=== PATIENT | male | born 1945 | race Caucasian/White ===

== ENCOUNTER 2016-08-13 04:36 | Inpatient (IN) | payer MEDICARE, OTHER ==
--- NOTE | ~2016-08-13 | CR71 ---
[facility] A Service of [facility] RADIOLOGY TEXT RESULTS PATIENT: WENDY GARCIA LOCATION: [address] : [birth year] UNIT #: [id number] AGE: [address]: Alena Mathias MD SEX: M ORDER DR: [id number] [facility] [address] [place], [place] [address] [id number] I MR#: [id number] Acc #: [id number] NAME: WENDY GARCIA : 1945 SEX: M STUDY DATE/TIME: 08/14/2016 11:58 UNIT: [facility] ROOM: [facility] STUDY DESCRIPTION: CR Chest Single View Attending Physician: Alena Mathias M.D. Ordering Physician: Taryn Allen M.D. Primary Care Physician: No Primary Care Physician MEDICAL IMAGING REPORT This report is preliminary unless electronic signature is present EXAM AP portable chest DATE 08/14/2016 11:58 HISTORY Status post thoracentesis and central line placement today. COMPARISON AP portable chest 08/13/2016. CT chest 08/13/2016. Ultrasound guided left thoracentesis 08/14/2016. Right IJ approach central line placement 08/14/2016 at 10:36. FINDINGS Left lateral chest wall pleural thickening consistent with loculated pleural effusion again noted. The overall width appears diminished, suggesting amount of pleural fluid has decreased within it status post thoracentesis performed earlier today. There is no visible pneumothorax. Small right pleural effusion may be slightly increased compared to 08/13/2016. Interstitial and alveolar disease changes are present in both lungs, greatest in the right sjg-ph-chofr lung zone, slightly increased in the right perihilar region since previous examination. There may be slightly improved aeration in the lung apices, however, compared to the previous study. Stable heart size. Right IJ central line tip extends to the cavoatrial junction. IMPRESSION 1. Interval decrease in the loculated left lateral pleural fluid compared to 08/13/2016. No post thoracentesis pneumothorax is seen. 2. Right IJ central line placement with tip near the cavoatrial junction. 3. Interstitial and alveolar disease changes predominantly in the dyz-mi-meelz lung zones, slightly increased in the right perihilar STS. [facility] A Service of [facility] RADIOLOGY TEXT RESULTS PATIENT: WENDY GARCIA LOCATION: CICCU2 CICCU2-08 : [birth year] UNIT #: [id number] AGE: [address]: Alena Mathias MD SEX: M ORDER DR: region since the previous study. Correlate clinically for worsening pneumonia. The extreme lung apices appear slightly better aerated than on the previous exam. Dictated by... Carrie Yung M.D. THIS IS AN ELECTRONICALLY VERIFIED REPORT Carrie Yung M.D. at 08/15/2016 7:08 AM Marilyn TD: 08/14/2016 15:45 JOB #: [id number] MEDICAL IMAGING REPORT Page 1 of 1 COPY
--- NOTE | ~2016-08-13 | HP ---
Unit #: [id number] #: [id number] Patient: WENDY GARCIA [id number] [address] [address] [id number] I MR#: [id number] NAME: WENDY GARCIA ROOM: [address] Age: 71 Sex: M Admission Date: 08/13/2016 : 1945 Attending Physician: Alena Mathias M.D. Primary Care Physician: No Primary Care Physician HISTORY AND PHYSICAL CHIEF COMPLAINT Shortness of breath. HISTORY OF PRESENT ILLNESS The patient is a pleasant, 71-year-old male who has a history of respiratory failure with diastolic heart failure, end stage renal disease, COPD, anemia and coronary artery disease who presented with some shortness of breath. He was seen in the emergency room and admitted. His lactic acid level was elevated and he is currently being treated for sepsis. Chest x-ray revealed diffuse infiltrates in the left base and loculated pleural effusion. He is currently on BiPAP at this time. He does have a cough. Denies any fever but he is having chest pain. REVIEW OF SYSTEMS Complete ten point review of systems has been done and pertinent positives noted. PAST MEDICAL HISTORY 1. Diastolic heart failure. 2. End stage kidney disease. 3. COPD. 4. Anemia. 5. Coronary artery disease. 6. Paroxysmal atrial fibrillation. 7. Gastroesophageal reflux disease. 8. Hyperlipidemia. MEDICATIONS Medications include: 1. Norvasc 10 mg p.o. daily. 2. Lipitor 80 mg p.o. daily. 3. Nitrostat 0.4 mg sublingual q.5 minutes p.r.n. 4. Renvela 1600 mg p.o. three times a day. 5. Metoprolol tartrate 100 mg p.o. twice a day. 6. Spiriva 18 mcg inhalational daily. 7. Ventolin two puffs inhalational q.i.d. 8. Aspirin 81 mg p.o. daily. 9. Ascorbic acid 500 mg p.o. daily. 10. Flexeril 10 mg p.o. daily. 11. Imdur ER 60 mg p.o. daily. 12. Meclizine 25 mg p.o. q.8 hourly p.r.n. 13. Omeprazole 40 mg p.o. daily. 14. Tylenol 60 mg p.o. q.6 hourly p.r.n. Unit #: [id number] #: [id number] Patient: WENDY GARCIA ALLERGIES SHANTEL inhibitors, hydrocodone, adenosine IV, ranitidine. SOCIAL HISTORY Quit smoking. Denies any alcohol use or illicit drug use. FAMILY HISTORY Negative, noncontributory to the presenting complaint. PHYSICAL EXAMINATION GENERAL APPEARANCE: He was comfortable, not in any distress. VITAL SIGNS: Blood pressure was 152/84, pulse 106, respiratory rate 30, temperature 96.4. HEENT: Pupils were equal, reactive to light and accommodation. NECK: Supple without thyromegaly. CHEST: Reduced breath sounds in the lung bases with expiratory wheezing. SKIN: Warm and dry with no rashes. Skin was sallow and cool. LYMPHATIC SYSTEM: No enlarged peripheral lymphadenopathy that I could appreciate. NEUROLOGICAL: Limited because patient is currently on bed and attached to the BiPAP machine but able to move all limbs spontaneously. Cranial nerves II-XII grossly intact. DIAGNOSTIC STUDIES IMAGING: He had a chest x-ray which showed loculated pleural effusion as well as infiltrates. CARDIOVASCULAR: He had an EKG which showed (1) with rapid ventricular response. LABORATORY: He had chemistries with glucose of 207, BUN and creatinine (2) and 7.5, sodium and potassium 136 and 3.2, chloride and bicarbonate 92 and 20 respectively and a BNP of 2209, TSH of 0.16. CBC with WBC of 14.9, hemoglobin and hematocrit 8.5 and 26.4, platelet count of 551. ASSESSMENT AND PLAN 1. Pneumonia with sepsis: Blood cultures have been obtained. He is on broad spectrum antibiotics. Pulmonary has been consulted, Dr. Alba. The patient has already seen Dr. Alba. He is on Zithromax and Rocephin at this time for pneumonia. 2. Sepsis: The patient has an elevated lactic acid from IV fluids at 60 mL/hour considering the fact that he has congestive heart failure. 3. Pleural effusions: He has been seen by pulmonary, Dr. Julia Alba. She will get a 2D echo and get a CT of the chest with no contrast and consider thoracentesis. 4. Code status: Full Code. Dictated by Jose Alfredo ChenO/df TD: 08/13/2016 12:21 Unit #: [id number] #: [id number] Patient: WENDY GARCIA JOB #: [id number] HISTORY AND PHYSICAL Page 1 of 1 X Cynthia Velez MD HISTORY AND PHYSICAL
--- NOTE | ~2016-08-13 | CO ---
Unit #: [id number] #: [id number] Patient: WENDY HAYDEN [id number] [address] [address] [id number] I MR#: [id number] NAME: WENDY HAYDEN ROOM: CICCU2 Age: 71 Sex: M Admission Date: 08/13/2016 : 1945 Attending Physician: Alena Mathias M.D. Primary Care Physician: Primary Care Physician No Requesting Physician: Luis Reyes M.D. CONSULTATION REPORT REASON FOR CONSULTATION Loculated left pleural effusion. HISTORY OF PRESENT ILLNESS Mr. Wendy Hayden is a 71-year-old male with complaint of worsening shortness of air over a six-day period of time at home despite hemodialysis on Sunday, Sunday, and Sunday. He presented to the emergency room on 08/13/2016 with shortness of air. His lactic acid was elevated and he was treated for sepsis and given extra fluid volume. His chest x-ray revealed a left pleural effusion and CT of the chest confirmed loculated left pleural effusion on 08/13/2016. Thoracentesis on 08/14/2016 removed 250 mL of bloody drainage; however, follow up chest x-ray revealed minimal decrease in the loculated portion of the effusion. The patient is on BiPAP and hemodialysis at the time of the interview. PAST MEDICAL HISTORY 1. Respiratory failure. 2. Diastolic heart failure. 3. End-stage renal disease on hemodialysis. 4. COPD. 5. Anemia. 6. Coronary artery disease with the last cardiac catheterization found in the [place] on 10/20/2013 which showed severe two-vessel disease with an ejection fraction of 59%. 7. He has atrial fibrillation with RVR on this admit and a history of chronic atrial fibrillation. 8. GERD. 9. Hyperlipidemia. HOME MEDICATIONS Reviewed and list will remain in the chart. ALLERGIES 1. SHANTEL inhibitors. 2. Hydrocodone. 3. Adenosine. 4. IV contrast dye. 5. Zantac. SOCIAL HISTORY/FAMILY HISTORY/REVIEW OF SYSTEMS Unobtainable due to patient being on BiPAP and breathless when off of BiPAP. Unit #: [id number] #: [id number] Patient: WENDY HAYDEN PHYSICAL EXAMINATION VITAL SIGNS: Temperature 97.6, heart rate 90, respiratory rate 14, blood pressure 132/65. GENERAL: Mr. Hayden is an obviously ill 71-year-old male, fair historian regarding his own medical history. Difficult to interview with BiPAP in place. NEUROLOGIC: He is intact and is hard of hearing. HEENT: Normocephalic. No facial asymmetry. Sclerae are anicteric. NECK: Supple. Trachea midline. No thyromegaly. No JVD. LUNGS: Decreased in the bases with crackles. He has no increase in AP diameter. HEART: S1, S2 without rub, without murmur, no edema. ABDOMEN: Round, soft, bowel sounds positive. Nontender. No pulsatile masses or hepatosplenomegaly. EXTREMITIES: Left arm hemodialysis access in place which is an arteriovenous fistula. He has bilateral lower extremities without edema. No clubbing, no cyanosis. He ambulates at home and is full weightbearing. DIAGNOSTIC STUDIES LABORATORY: BUN 77, creatinine 9.1, sodium 135, potassium 4.3, magnesium 2.5. WBC 23 up from 14 yesterday, platelets 435, hemoglobin 7.1, hematocrit 22.4. IMPRESSION 1. Loculated left pleural effusion, status post thoracentesis today with 250 mL removed this a.m. with little difference in the chest x-ray. We will await the cultures. Patient denies any previous pleural effusion. 2. End-stage renal disease on hemodialysis Sunday, Sunday, and Sunday. Patient denies any missed appointments. 3. Coronary artery disease. Last cardiac catheterization at the [facility] in 2013 which, by report in his chart, shows severe two-vessel disease. PLAN Possible placement of large caliber tube for as patient may be a poor surgical a candidate. Dr. Salinas has met with and examined patient and reviewed films. Dictated by... Lois Ty A.P.R.N. for Shad Salinas M.D. JENSEN/estevan TD: 08/14/2016 18:50 JOB #: [id number] Unit #: [id number] #: [id number] Patient: WENDY HAYDEN CONSULTATION REPORT Page 1 of 1 X Lois Ty APRN CONSULTATION REPORT
--- NOTE | ~2016-08-13 | EKG ---
PATIENT: WENDY GARCIA UNIT #: [id number] Ventricular Rate: 106 BPM Atrial Rate: 100 BPM QRS Duration: 106 ms Q-T Interval: 370 ms QTC Calculation(Bezet): 491 ms Calculated R [place]: 12 degrees Calculated T [place]: 60 degrees Diagnosis Line: Atrial fibrillation with rapid ventricular Diagnosis Line: response Diagnosis Line: Nonspecific ST and T wave abnormality Diagnosis Line: Abnormal ECG Diagnosis Line: When compared with ECG of 05-MAY-2016 05:59, Diagnosis Line: Atrial fibrillation has replaced Sinus rhythm Diagnosis Line: Non-specific change in ST segment in Inferior Diagnosis Line: leads Diagnosis Line: Nonspecific T wave abnormality now evident in Diagnosis Line: Inferior leads Diagnosis Line: Confirmed by JUANCHO RIVAS MD ([id number]) on Diagnosis Line: 08/14/2016 8:36:49 AM INTERPRETING MD: ROB CAPPS
--- NOTE | ~2016-08-13 | CR72 ---
[facility] A Service of [facility] RADIOLOGY TEXT RESULTS PATIENT: WENDY GARCIA LOCATION: [address] : [birth year] UNIT #: [id number] AGE: [address]: Luis Reyes MD SEX: M ORDER DR: [id number] [facility] [address] [place], [place] [address] [id number] I MR#: [id number] Acc #: [id number] NAME: WENDY GARCIA : 1945 SEX: M STUDY DATE/TIME: 08/19/2016 7:36 UNIT: [facility] ROOM: [facility] STUDY DESCRIPTION: CR Chest Single View Portable Attending Physician: Luis Reyes M.D. Ordering Physician: Lois Ty A.P.R.N. MEDICAL IMAGING REPORT This report is preliminary unless electronic signature is present EXAM Portable chest 08/19/2016 HISTORY 71-year-old male status post chest tube removal today. Shortness of air. COMPARISON STUDIES Chest 08/19/2016 at 0510 hours. FINDINGS Frontal chest demonstrates removal of the left-sided chest tube. There is a small persistent left basilar hydropneumothorax. Tiny left apical pneumothorax. Bilateral interstitial opacities and bibasilar infiltrates are unchanged. Right IJ central venous catheter is stable. Heart size and mediastinum are stable. IMPRESSION 1. Interval removal of left-sided chest tube. Persistent small left basilar hydropneumothorax. Tiny left apical pneumothorax. 2. No change in bilateral interstitial opacities and bibasilar atelectasis/infiltrate. Dictated by... Jasper Livingston M.D. THIS IS AN ELECTRONICALLY VERIFIED REPORT Jasper Livingston M.D. at 08/20/2016 6:20 AM KRYSTIAN/raquel TD: 08/19/2016 09:33 JOB #: [id number] [facility] A Service of [facility] RADIOLOGY TEXT RESULTS PATIENT: WENDY GARCIA LOCATION: [facility] CICCU2-08 : [birth year] UNIT #: [id number] AGE: [address]: Luis Reyes MD SEX: M ORDER DR: MEDICAL IMAGING REPORT Page 1 of 1 COPY
--- NOTE | ~2016-08-13 | OR ---
Unit #: [id number] #: [id number] Patient: WENDY GARCIA [id number] [address] [address] [id number] I MR#: [id number] NAME: WENDY GARCIA ROOM: [facility] Date of Procedure: 08/15/2016 Admission Date: 08/13/2016 Surgeon: Shad Salinas M.D. : 1945 Attending Physician: Luis Reyes M.D. OPERATIVE REPORT PREOPERATIVE DIAGNOSIS Left loculated pleural effusion. POSTOPERATIVE DIAGNOSIS Left loculated pleural effusion. PROCEDURE PERFORMED Insertion of a #20 left chest tube. ANESTHESIA Local 1% Xylocaine. ESTIMATED BLOOD LOSS About 5 mL. COMPLICATIONS None. DESCRIPTION OF PROCEDURE With the patient in his intensive care unit bed, he was placed such that the left chest was slightly elevated and his left arm was placed behind his head. The left chest was prepped with DuraPrep and draped in a sterile fashion. After adequate anesthesia had been obtained using local 1% Xylocaine, a small transverse skin incision was made in the anterior axillary line just slightly below the sixth intercostal space. A tonsil clamp was used to spread through the subcutaneous tissue and down through the sixth intercostal space into the pleural space. Following this, a #20 trocar left chest tube was inserted into this pleural space and then directed up along the chest wall. I was able to drain about 75 mL of fluid with insertion of the tube. The tube was connected to a Pleur-evac. A cut 4x4 was placed around the chest tube and it was secured in place with tape. Estimated blood loss in the procedure was about 5 mL. The patient tolerated the procedure well. Dictated by... Jose Alfredo London/erin TD: 08/16/2016 23:07 Unit #: [id number] #: [id number] Patient: WENDY GARCIA JOB #: [id number] OPERATIVE REPORT Page 1 of 1 X Shad Salinas MD X PROCEDURE OPERATIVE NOTE
--- NOTE | ~2016-08-13 | EKG ---
PATIENT: WENDY GARCIA UNIT #: [id number] Ventricular Rate: 130 BPM Atrial Rate: 130 BPM P-R Interval: 128 ms QRS Duration: 104 ms Q-T Interval: 348 ms QTC Calculation(Bezet): 512 ms Calculated T [place]: 101 degrees Diagnosis Line: Sinus tachycardia with Premature supraventricular Diagnosis Line: complexes Diagnosis Line: Anterior infarct , age undetermined Diagnosis Line: Marked ST abnormality, possible lateral Diagnosis Line: subendocardial injury Diagnosis Line: Abnormal ECG Diagnosis Line: When compared with ECG of 13-AUG-2016 04:49, Diagnosis Line: (unconfirmed) Diagnosis Line: Sinus rhythm has replaced Atrial fibrillation Diagnosis Line: Nonspecific T wave abnormality no longer evident Diagnosis Line: in Inferior leads Diagnosis Line: T wave inversion now evident in Lateral leads Diagnosis Line: Confirmed by NOAH MENDOZA MD ([id number]) on 08/14/2016 Diagnosis Line: 5:50:26 AM INTERPRETING MD: KELLY CAPPS
--- NOTE | ~2016-08-13 | CR72 ---
[facility] A Service of [facility] RADIOLOGY TEXT RESULTS PATIENT: WENDY GARCIA LOCATION: [facility] 555 : [birth year] UNIT #: [id number] AGE: [address]: Luis Reyes MD SEX: M ORDER DR: [id number] [facility] [address] [place], [place] [address] [id number] I MR#: [id number] Acc #: [id number] NAME: WENDY GARCIA : 1945 SEX: M STUDY DATE/TIME: 08/21/2016 6:51 UNIT: B ROOM: [facility] STUDY DESCRIPTION: CR Chest Single View Portable Attending Physician: Luis Reyes M.D. Ordering Physician: Chepe Freire M.D. Primary Care Physician: Primary Care Physician No MEDICAL IMAGING REPORT This report is preliminary unless electronic signature is present EXAM Portable chest 08/21/2016 COMPARISON 08/20/2016. HISTORY Status post chest tube removal, left pleural effusion, shortness of breath for 8 days. FINDINGS An AP view is obtained. Heart size is enlarged. Continues to be left-sided pleural fluid or pleural thickening. Lungs continue to show evidence of passive congestion and interstitial edema. There is likely a small to moderate right-sided effusion which is new. Right-sided line terminates in the SVC. CONCLUSION Continued evidence of interstitial edema. Stable left-sided pleural thickening. New right-sided pleural effusion. Dictated by... Ant Luther M.D. THIS IS AN ELECTRONICALLY VERIFIED REPORT Ant Luther M.D. at 08/22/2016 5:06 PM HELEN/padmini TD: 08/21/2016 07:47 JOB #: [id number] [facility] A Service [facility] RADIOLOGY TEXT RESULTS PATIENT: WENDY GARCIA LOCATION: [facility] 555 : [birth year] UNIT #: [id number] AGE: [address]: Luis Reyes MD SEX: M ORDER DR: MEDICAL IMAGING REPORT Page 1 of 1 COPY
--- NOTE | ~2016-08-13 | DS ---
Unit #: [id number] #: [id number] Patient: WENDY GARCIA [id number] [address] [address] [id number] I MR#: [id number] NAME: WENDY GARCIA ROOM: 555 Age: 71 Sex: M Admission Date: 08/13/2016 : 1945 Discharge Date: 08/24/2016 Attending Physician: Luis Reyes M.D. Primary Care Physician: Primary Care Physician No DISCHARGE SUMMARY PROBABLE DATE OF DISCHARGE 08/23/2016 pending home O2 set-up. HISTORY OF PRESENT ILLNESS/HOSPITAL COURSE The patient is a very pleasant 71-year-old male with underlying prior history of respiratory failure, diastolic dysfunction, end-stage renal disease on hemodialysis followed by [facility] team, COPD, anemia, and coronary artery disease, who presented secondary to shortness of breath. His initial lactic acid level was elevated. Chest x-ray showed diffuse infiltrates and he was admitted secondary to sepsis present on admission as well as pneumonia. Initially, he was placed on BiPAP and subsequently was placed in the ICU. Consultation was placed to Dr. Brannon and associates for evaluation. Through his hospital course, the patient ultimately underwent a thoracentesis with approximately 250 mL removed on the left side. Fluid studies were ascertained as well. Pulmonary services continued to follow the patient through his hospital course secondary to left-sided pleural effusion as well as concern for possible loculation versus empyema. Consultation was also placed to Dr. Salinas thoracic surgery services. The patient underwent left chest tube placement on 08/15/2016. Dr. Salinas continued to follow the patient through the hospital course as well. Eventually, his chest tube was removed. His antibiotics were de-escalated from IV into p.o. His IV Solu-Medrol was de-escalated as well. Cardiology services were also consulted secondary to his prior history of pzkehced-pa-hgkfos tricuspid regurgitation, as well as moderate pulmonary hypertension and prior history of diastolic dysfunction. Decision was made for no anticoagulation for atrial fibrillation secondary to prior history of anemia requiring blood transfusions off and on in the past. At the time of discharge, the patient will be transitioned to p.o. amiodarone with taper as to be determined by Cardiology. At this point in time, patient is medically stable for discharge. However, he has required O2 via nasal cannula as his O2 saturations have dipped into the low 80s even at rest. We are pending on insurance approval for the same. In regard to his history of end-stage renal disease, [facility] were consulted. The patient did undergo hemodialysis through Unit #: [id number] #: [id number] Patient: WENDY GARCIA his hospital course. At time of discharge, patient will follow up with Dr. Brannon's nurse practitioner in two weeks, as well as with Dr. Brannon in six to eight weeks. He will also follow up with his primary care physician in 7-10 days. At time of discharge, he will be given a prescription for Augmentin 875 mg p.o. b.i.d. times 7 days. PT and OT services did make a recommendation for consideration for rehab placement; however, he states that he wishes to go home and that he ultimately has care at home. FINAL DISCHARGE DIAGNOSES 1. Rpjtb-ur-sdbqpdl respiratory failure. 2. End-stage chronic obstructive pulmonary disease, now O2 dependent. 3. Loculated left-sided pleural effusion/empyema, status post thoracentesis as well as chest tube placement. 4. Atrial fibrillation not on chronic anticoagulation secondary to anemia with blood transfusions in the past. 5. Anemia of chronic disease. 6. End-stage renal disease. 7. Sepsis present on admission. 8. Pleural effusion/empyema. 9. Tobacco abuse. 10. Failure to thrive. 11. Immobility syndrome. 12. Hyperlipidemia. 13. Hypertension. 14. Gastroesophageal reflux disease. DISCHARGE MEDICATIONS 1. Ascorbic acid 500 mg p.o. daily. 2. Sublingual nitroglycerin as directed. 3. Imdur 60 mg p.o. daily. 4. Flexeril 10 mg p.o. daily p.r.n. 5. Omeprazole 40 mg p.o. daily. 6. Renvela 1600 mg p.o. t.i.d. 7. Augmentin 875 mg p.o. b.i.d. times 7 days. 8. Zemplar, as directed, with each dialysis Sunday, Sunday, and Sunday. 9. Tramadol 50 mg p.o. q.8 h. p.r.n. pain. 10. Aspirin 81 mg daily. 11. Lipitor 80 mg p.o. h.s. 12. Procrit injection Sunday, Sunday, and Sunday. 13. Lopressor 25 mg p.o. q.6 h. 14. Norvasc 10 mg p.o. daily. 15. Meclizine 25 mg p.o. q.8 h. p.r.n. 16. Spiriva one inhalation daily. 17. Tylenol 650 mg p.o. q.6 h. p.r.n. 18. DuoNeb aerosol solution q.6 h. scheduled with home nebulizer. 19. Amiodarone 200 mg p.o. b.i.d. with taper appropriate and directions by Cardiology. DISCHARGE CONDITION Stable. DISCHARGE DISPOSITION Home. Unit #: [id number] #: [id number] Patient: WENDY GARCIA FOLLOWUP PCP 7-10 days. Dictated by... Jose Alfredo Chapman/estevan TD: 08/24/2016 19:14 JOB #: [id number] DISCHARGE SUMMARY Page 1 of 1 X Luis Reyes MD X DISCHARGE SUMMARY
--- NOTE | ~2016-08-13 | EKG ---
PATIENT: WENDY GARCIA UNIT #: [id number] Ventricular Rate: 86 BPM Atrial Rate: 86 BPM QRS Duration: 102 ms Q-T Interval: 428 ms QTC Calculation(Bezet): 512 ms Calculated R [place]: 29 degrees Calculated T [place]: 63 degrees Diagnosis Line: Sinus rhythm with PAC's Diagnosis Line: Prolonged QT Diagnosis Line: Abnormal ECG Diagnosis Line: When compared with ECG of 13-AUG-2016 12:00, Diagnosis Line: Vent. rate has decreased BY 44 BPM Diagnosis Line: ST no longer depressed in Lateral leads Diagnosis Line: T wave inversion no longer evident in Lateral Diagnosis Line: leads Diagnosis Line: Confirmed by MOJGAN CLAROS MD ([id number]) on Diagnosis Line: 08/15/2016 9:46:29 PM INTERPRETING MD: ARTHUR
--- NOTE | ~2016-08-13 | CO ---
Unit #: [id number] #: [id number] Patient: WENDY HAYDEN [id number] [address] [place], [place] [address] [id number] I MR#: [id number] NAME: WENDY HAYDEN ROOM: CICCU2 Age: 71 Sex: M Admission Date: 08/13/2016 : 1945 Attending Physician: Luis Reyes M.D. Consultation Date: 08/14/2016 CONSULTATION REPORT REASON FOR CONSULTATION Management of end-stage renal disease. HISTORY OF PRESENT ILLNESS Mr. Hayden is a 71-year-old white male with a history of respiratory failure in the past along with heart failure and end-stage renal disease as well as COPD and coronary artery disease. The patient reported he was in his usual state of health until approximately 3 weeks ago when he began to experience a significant coughing episode with some mild shortness of breath. This gradually resolved over few days and he felt back to his baseline. This past Sunday, he began to experience some mild shortness of breath on an intermittent basis, which resolved the same day. On Sunday, he presented to the dialysis unit with some shortness of breath and over the course of the treatment, his respiratory issues resolved. He reported he did well on , but then on Sunday, he was also short of breath at dialysis, but again improved over the course of the treatment. He reported an episode again on Sunday, which resolved itself, but then reported on Sunday evening, his breathing became so severe that he sought attention at the emergency room. Over this period of time, he reports that his cough has been fairly minimal. He denies sputum production. He denies fevers or chills. He reports that he does not believe that he has gained excessive weight in between his dialysis treatments. REVIEW OF SYSTEMS A 10-point review of systems was done, and pertinent positives were noted as above. Specifically, he denies hemoptysis; GI issues including nausea, vomiting, diarrhea; skin lesions or boils; etc. He does complain of ongoing back pain the spinal issue. PAST MEDICAL HISTORY Significant for end-stagde renal disease, COPD, anemia, coronary artery disease, congestive heart failure, paroxysmal atrial fibrillation, gastroesophageal reflux disease, and hyperlipidemia. SOCIAL HISTORY The patient is a former smoker. He does not drink. He is and lives with his . FAMILY HISTORY Noncontributory. ALLERGIES SHANTEL inhibitors, hydrocodone, and Zantac. Unit #: [id number] #: [id number] Patient: WENDY HAYDEN PHYSICAL EXAMINATION VITAL SIGNS: At the time of evaluation, he was afebrile with a temperature of 97.4. His blood pressure was 141/66 with a heart rate of 85 and a respiratory rate of 17. He was on a pressure support mask with O2 saturations of 100%. GENERAL: He looked well, in no acute distress. HEENT: Head was normocephalic. Pupils were equal and reactive. Sclerae and conjunctivae were clear. NECK: Supple without adenopathy. There was no jugular venous distention. LUNGS: His chest showed diminished breath sounds on the left anterolaterally. There were no overt rales or rhonchi. The right side was clear. HEART: Regular rate with a prominent 3/6 systolic ejection murmur over the precordium. ABDOMEN: Soft and nontender. No masses or organomegaly were noted. GENITAL/RECTAL: Deferred. EXTREMITIES: Showed no lower extremity, thigh, buttocks, or flank edema. SKIN: Unremarkable with no evidence of rashes or boils or other lesions. NEUROLOGIC: Grossly unremarkable. DIAGNOSTIC STUDIES LABORATORY RESULTS: Notable for a blood gas showing a pH of 7.407 with a pCO2 of 39.8 and a pO2 of 68.2. Chemistries showed a creatinine of 8.7 with a BUN of 70 with a potassium of 3.5 and a bicarbonate of 21. Other values were essentially unremarkable except for a very mildly elevated alkaline phosphatase. Hemoglobin was 7.1 with a white count of 23,000 and platelet count of 435. IMPRESSION 1. Pneumonia/pleural lesions. With an elevated white count and shortness of breath, we agreed that he is presumed to have pneumonia and broad spectrum antibiotics have already been started and he is being followed by Pulmonary. 2. Possible sepsis. The patient was noted to have an elevated lactic acid and has been given some fluid resuscitation. 3. End-stage renal disease. The patient does not appear to be volume overloaded based upon his peripheral exam. Did have a mechanism to mirna this intravascular filling at this point in time, but given his hypoxia, we will want to cautiously challenge him as his hemodynamic status permits. Dictated by... Jose Alfredo Gomez/erin TD: 08/15/2016 09:25 JOB #: [id number] Unit #: [id number] #: [id number] Patient: WENDY HAYDEN CONSULTATION REPORT Page 1 of 1 X Edwin Saunders Jr, MD X CONSULTATION REPORT
--- NOTE | ~2016-08-13 | CR72 ---
[facility] A Service of [facility] RADIOLOGY TEXT RESULTS PATIENT: WENDY GARCIA LOCATION: [place] [address] : [birth year] UNIT #: [id number] AGE: [address]: Luis Reyes MD SEX: M ORDER DR: [id number] [facility] [address] [place], [place] [address] [id number] I MR#: [id number] Acc #: [id number] NAME: WENDY GARCIA : 1945 SEX: M STUDY DATE/TIME: 08/18/2016 04:28 UNIT: [facility] ROOM: [facility] STUDY DESCRIPTION: CR Chest Single View Portable Attending Physician: Luis Reyes M.D. Ordering Physician: Lois Ty A.P.R.N. Primary Care Physician: Primary Care Physician No MEDICAL IMAGING REPORT This report is preliminary unless electronic signature is present EXAM Portable chest 08/18 at 04:28 INDICATIONS Shortness of air. Pleural effusion. Chest tube. FINDINGS AP portable chest compared with 08/17/2016. Left chest tube in place. Pleural fluid collection on the left is stable. There is increasing consolidation in the right base and there may be increase in right pleural fluid. Generalized interstitial opacity would suggest mild edema. There is no pneumothorax on either side of the chest. Dictated by... Ruben Raymundo Jr., M.D. THIS IS AN ELECTRONICALLY VERIFIED REPORT Ruben Raymundo Jr., M.D. at 08/21/2016 8:36 AM MARIAM/katerin TD: 08/18/2016 06:46 JOB #: [id number] MEDICAL IMAGING REPORT Page 1 of 1 COPY
--- NOTE | ~2016-08-13 | CR72 ---
[facility] A Service of [facility] RADIOLOGY TEXT RESULTS PATIENT: WENDY GARCIA LOCATION: [place] [address] : [birth year] UNIT #: [id number] AGE: [address]: Luis Reyes MD SEX: M ORDER DR: [id number] [place] [id number] [facility]. [place], [place] [address] [id number] I MR#: [id number] Acc #: [id number] NAME: WENDY GARCIA : 1945 SEX: M STUDY DATE/TIME: 08/19/2016 5:10 UNIT: [facility] ROOM: [facility] STUDY DESCRIPTION: CR Chest Single View Portable Attending Physician: Luis Reyes M.D. Ordering Physician: Lois Ty A.P.R.N. Primary Care Physician: No Primary Care Physician MEDICAL IMAGING REPORT This report is preliminary unless electronic signature is present EXAM Single view chest. INDICATION Shortness of air. Left pleural effusion. FINDINGS Single, portable, AP view of the chest compared to 08/18/2016. Right IJ central line and the left chest tube remain in place. There is question of a small hydropneumothorax in the left lung base. The overall size of the effusion/hydrothorax is not changed from the prior study. This can be followed. Interstitial edema and right pleural effusion are similar to the prior study. IMPRESSION Questionable development of a small left hydropneumothorax. The size of the hydropneumothorax is not changed from the patient's prior pleural effusion. This lucency in the area could also be due to a skin fold. This can simply be followed. Dictated by... Scout Amaro M.D. THIS IS AN ELECTRONICALLY VERIFIED REPORT Scout Amaro M.D. at 08/19/2016 11:14 PM RPDerick/marta TD: 08/19/2016 09:20 JOB #: [id number] MEDICAL IMAGING REPORT [facility] A Service of [facility] RADIOLOGY TEXT RESULTS PATIENT: WENDY GARCIA LOCATION: [facility]-08 : [birth year] UNIT #: [id number] AGE: [address]: Luis Reyes MD SEX: M ORDER DR: Page 1 of 1 COPY
--- NOTE | ~2016-08-13 | CT57 ---
[facility] A Service of [facility] RADIOLOGY TEXT RESULTS PATIENT: WENDY GARCIA LOCATION: [address] : [birth year] UNIT #: [id number] AGE: [address]: Alena Mathias MD SEX: M ORDER DR: [id number] [facility] [address] [place], [place] [address] [id number] I MR#: [id number] Acc #: [id number] NAME: WENDY GARCIA : 1945 SEX: M STUDY DATE/TIME: 08/13/2016 14:07 UNIT: [facility] ROOM: [facility] STUDY DESCRIPTION: CT Chest Wo Cont Attending Physician: Alena Mathias M.D. Ordering Physician: Julia Alba D.O. Primary Care Physician: Primary Care Physician No MEDICAL IMAGING REPORT This report is preliminary unless electronic signature is present EXAM CT of the chest without contrast INDICATION Shortness of breath beginning last night. TECHNIQUE CT of the chest was performed without contrast. Coronal and sagittal reformatted images were obtained. There are no comparison chest CTs available. This CT exam was performed with one or more of the following radiation dose reduction techniques: automatic exposure control, adjustment of mA and/or kV according to patient size, and iterative reconstruction. FINDINGS There is a large left pleural effusion with what appear to be some septations throughout the pleural fluid. There is a small right pleural effusion. There are emphysematous changes of the lungs and scarring in the lung apices. There is atelectasis involving both lower lobes. There are some ground-glass infiltrates within the right lower lobe, right middle lobe and the base of the right upper lobe which may be infectious or inflammatory or could be edema. There are also some increased interstitial opacities as well within the right middle lobe and right lower lobe. Cardiomegaly. Coronary artery calcifications. There are prominent mediastinal lymph nodes which are nonspecific and may be reactive given the findings in the lungs. Some of these have calcifications. Limited imaging of the upper abdomen demonstrates small atrophic kidneys. Bone windows are unremarkable. [facility] A Service of [facility] RADIOLOGY TEXT RESULTS PATIENT: WENDY GARCIA [facility] [birth year] UNIT #: [id number] AGE: [address]: Alena Mathias MD SEX: M ORDER DR: IMPRESSION 1. There is a large left pleural effusion which appears to contain multiple septations. There is associated passive atelectasis involving the left lower lobe and also left upper lobe. 2. A small right pleural effusion is present with atelectasis/consolidation in the right lower lobe. 3. There are multiple ground-glass opacities and interstitial thickening elsewhere within the right lower lobe, right middle lobe and base of the right upper lobe. These are nonspecific and may be infectious or inflammatory or could be edema. 4. Emphysema. 5. Prominent mediastinal lymph nodes are nonspecific and may be reactive. 6. Suggest followup chest CTs to document clearing of these above findings. Dictated by... Humberto Salcedo M.D. THIS IS AN ELECTRONICALLY VERIFIED REPORT Humberto Salcedo M.D. at 08/14/2016 2:22 PM LIZ/emily TD: 08/14/2016 04:56 JOB #: [id number] MEDICAL IMAGING REPORT Page 1 of 1 COPY
--- NOTE | ~2016-08-13 | A ---
[facility] DATE: 08/18/16 Patient: WENDY GARCIA Physician: ANNELISE Address: [address] [place] [address] Room/Bed: [address], Zip: [place] [address] Admit Date: 08/13/16 Date of : [birth year] Height: 5 9 Weight: 155 70.5 NUTRITIONAL ASSESSMENT: REASON: LOS IN ICU ASSESSMENT PT IS 71 Y.O. MALE ADMITTED FOR SOA, AFIB PMH: ESRD ON HD, COPD, CHF, CAD, AFIB, GERD, HTN, HLD, ETOH ABUSE Anthropometrics: 5'9", WT: 155# (70 KG), BMI: 22.9 Labs: GLU: 115, BUN: 59, CREAT: 7.4, CA+:8.3, PHOS: 4.8, NA+:134, GFR: 6.8 Meds: PROTONIX, LIPITOR, ASCORBIC ACID I/O & Bowel function: 1675/748, 1 BM NOTED Skin Integrity: DRY SKIN NOTED Estimated Nutrition Needs: INCREASED NEEDS 2' PMH (HD), ?WEIGHT LOSS NOTED Assessment: CHART REVIEWED AND EVENTS NOTED. PT SEEN FOR LENGTH OF STAY ASSESSMENT IN ICU (5 DAYS). PT RECEIVING HD CURRENTLY ON BIPAP REPORTING "PRETTY GOOD" PO INTAKE AND APPETITE, NO C/O N/V/D. PT REPORTS LOSING ~70# LAST 6-8 MONTHS? (31% WEIGHT LOSS). PER [employer], NO WEIGHT LOSS NOTED. (?WEIGHTS W/PT ON HD). THIS RD ENCOURAGED ADEQUATE KCAL AND PROTEIN INTAKE, PT AGREED TO TO NEPRO SHAKES BID, RD WILL ORDER. RD ALSO PROVIDED WRITTEN AND VERBAL RENAL/HH DIET EDUCATION. PT DEMONSTRATED UNDERSTANDING OF THE TOPIC. PT REPORTED NO DIET QUESTIONS AT THIS TIME. RD TO FOLLOW. SEE RECOMMENDATIONS BELOW. Dx: ALTERED NUTRIENT UTILIZATION R/T PMH AEB NEED FOR THERAPEUTIC DIET ORDER. Intervention: 1. RENAL +HH DIET 2. NEPRO SHAKES BID 3. DIET EDUCATION Monitoring, Evaluation and Goals: 1. ORAL INTAKE; CONSUME >50% OF MEALS AND SUPPLEMENTS W/NO C/O N/V/D 2. WEIGHTS; PREVENT WEIGHT LOSS; PROMOTE WEIGHT MAINTENANCE 3. LABS; WNL 4. GI; PROMOTE REGULAR GI FUNCTION MONITOR: -PO INTAKE/APPETITE [facility] DATE: 08/18/16 Patient: WENDY GARCIA Physician: ANNELISE Address: [address] [place] [address] Room/Bed: [address], Zip: [place] [address] Admit Date: 08/13/16 Date of : [birth year] Height: 5 9 Weight: 155 70.5 -WEIGHTS -SUPPLEMENT INTAKE -EDUCATION NEEDS Recommendations: 1. PLEASE ORDER VANILLA NEPRO SHAKES BID W/MEALS 2. CONTINUE CURRENT DIET ORDER ABOVE 2' PMH, CURRENT CONDITION 3. ENCOURAGE ADEQUATE PO INTAKE RD WILL F/U PER PROTOCOL PT IS MILDLY COMPROMISED Respectfully, DEANNE PRECIADO MS, RD, LD [facility] cc: client file
--- NOTE | ~2016-08-13 | CR72 ---
[facility] A Service of [facility] & [facility] RADIOLOGY TEXT RESULTS PATIENT: WENDY GARCIA LOCATION: [address] : [birth year] UNIT #: [id number] AGE: [address]: Luis Reyes MD SEX: M ORDER DR: [id number] [facility] [address]. [place], [place] [address] [id number] I MR#: [id number] Acc #: [id number] NAME: WENDY GARCIA : 1945 SEX: M STUDY DATE/TIME: 08/15/2016 05:19 UNIT: [facility] ROOM: [facility] STUDY DESCRIPTION: CR Chest Single View Portable Attending Physician: Alena Mathias M.D. Ordering Physician: Александр Brannon M.D. Primary Care Physician: Primary Care Physician No MEDICAL IMAGING REPORT This report is preliminary unless electronic signature is present EXAM Portable chest, 08/15 at 05:19 hours INDICATIONS Shortness of air. Left pleural effusion. Status post thoracentesis yesterday. FINDINGS AP portable chest is compared with 08/14/2016. Right IJ line in the SVC. Loculated left effusion is unchanged. Infiltrates in both mid and lower lungs are also grossly stable. There is a small volume of right side pleural fluid. No pneumothorax is seen. Dictated by... Ruben Raymundo Jr., M.D. THIS IS AN ELECTRONICALLY VERIFIED REPORT Ruben Raymundo Jr., M.D. at 08/16/2016 5:53 AM MARIAM/marycarmen TD: 08/15/2016 08:03 JOB #: [id number] MEDICAL IMAGING REPORT Page 1 of 1 COPY
--- NOTE | ~2016-08-13 | CR72 ---
[facility] A Service of [facility] & [facility] RADIOLOGY TEXT RESULTS PATIENT: WENDY GARCIA LOCATION: [place] [id number] : [birth year] UNIT #: [id number] AGE: [address]: Luis Reyes MD SEX: M ORDER DR: [id number] [facility] [address] [facility] [address]. [place], [place] [address] [id number] I MR#: [id number] Acc #: [id number] NAME: WENDY GARCIA : 1945 SEX: M STUDY DATE/TIME: 08/16/2016 4:44 UNIT: [facility] ROOM: [facility] STUDY DESCRIPTION: CR Chest Single View Portable Attending Physician: Luis Reyes M.D. Ordering Physician: Александр Brannon M.D. Primary Care Physician: Primary Care Physician No MEDICAL IMAGING REPORT This report is preliminary unless electronic signature is present EXAM Portable chest 08/16/2016 INDICATION Shortness of air. Follow up pleural effusion and left thoracentesis 08/14/2016. Follow up infiltrates. COMPARISON 08/15/2016. FINDINGS This portable view of the chest shows no change in diffuse bilateral infiltrates. There is a small probably loculated left pleural effusion in the lateral left chest with a chest tube within it. This is unchanged. The central venous catheter is stable. Heart size is normal. Dictated by... Santi Saleh M.D. THIS IS AN ELECTRONICALLY VERIFIED REPORT Santi Saleh M.D. at 08/16/2016 8:41 AM PHANI/padmini TD: 08/16/2016 07:24 JOB #: [id number] MEDICAL IMAGING REPORT Page 1 of 1 COPY
--- NOTE | ~2016-08-13 | XA75 ---
[facility] A Service of [facility] & [facility] RADIOLOGY TEXT RESULTS PATIENT: WENDY GARCIA LOCATION: [address] : [birth year] UNIT #: [id number] AGE: [address]: Luis Reyes MD SEX: M ORDER DR: [id number] [facility] [address] [facility]. [place], [place] [address] [id number] I MR#: [id number] Acc #: [id number] NAME: WENDY GARCIA : 1945 SEX: M STUDY DATE/TIME: 08/14/2016 10:36 UNIT: [facility] ROOM: [facility] STUDY DESCRIPTION: XA CVC Non-Tunnel Attending Physician: Alena Mathias M.D. Ordering Physician: Alena Mathias M.D. Primary Care Physician: No Primary Care Physician MEDICAL IMAGING REPORT This report is preliminary unless electronic signature is present EXAM Central line placement. HISTORY Need for IV access in a patient with shortness of breath. He was admitted August 13, 2016 after he had a chest CT which showed a large left pleural effusion. PROCEDURE The procedure was explained to the patient including risks, benefits, potential complications, and potential for alternative forms of treatment. Informed consent was obtained and prior to initiating the procedure a formal time-out procedure was performed. Using all elements of maximal sterile barrier technique including hand hygiene, caps, sterile gowns and gloves and masks, the right neck was prepped with 2% chlorhexidine for cutaneous antisepsis and covered with a large sterile sheet. Real-time sterile ultrasound guidance was used to localize the right internal jugular vein which was found to be patent and compressible. A hard copy ultrasound image was obtained. After local anesthesia with 1% Xylocaine, the vein was punctured. Using real-time sterile ultrasound guidance, a 0.018 wire was advanced into the superior vena cava. A micropuncture sheath was places. A J-wire was advanced through the micropuncture sheath and the track was dilated and subsequently a triple-lumen central venous line was advanced over the wire and positioned at the cavoatrial junction. Following placement of the catheter, it flushed and aspirated easily and was secured using two 2-0 Silk sutures. Total fluoroscopy time was 0.1 minutes. AK was 2 mGy. IMPRESSION Successful placement of a right internal jugular vein MediPort which terminates into the superior vena cava. This catheter is ready for STS. [facility] A Service of [facility] RADIOLOGY TEXT RESULTS PATIENT: WENDY GARCIA LOCATION: [address] : [birth year] UNIT #: [id number] AGE: [address]: Luis Reyes MD SEX: M ORDER DR: immediate use. Ultrasound and fluoroscopic were used during placement of the catheter and permanent images were saved. Dictated by... Taryn Allen M.D. THIS IS AN ELECTRONICALLY VERIFIED REPORT Taryn Allen M.D. at 08/15/2016 4:42 PM ARVIND/marta TD: 08/15/2016 09:24 JOB #: [id number] MEDICAL IMAGING REPORT Page 1 of 1 COPY
--- NOTE | ~2016-08-13 | CR72 ---
[facility] A Service of [facility] & [facility] RADIOLOGY TEXT RESULTS PATIENT: WENDY GARCIA LOCATION: [facility]- : [birth year] UNIT #: [id number] AGE: [address]: Luis Reyes MD SEX: M ORDER DR: [id number] [facility] [address] [facility]. [place], [place] [address] [id number] I MR#: [id number] Acc #: [id number] NAME: WENDY GARCIA : 1945 SEX: M STUDY DATE/TIME: 08/20/2016 5:14 UNIT: [facility] ROOM: [facility] STUDY DESCRIPTION: CR Chest Single View Portable Attending Physician: Luis Reyes M.D. Ordering Physician: Lois Ty A.P.R.N. Primary Care Physician: No Primary Care Physician MEDICAL IMAGING REPORT This report is preliminary unless electronic signature is present EXAM Single view chest. INDICATION Chest tube placement. TECHNIQUE Single, portable, AP view of the chest compared to 08/19/2016. FINDINGS Right IJ central line remains in place. Heart and mediastinal contours are unchanged. Left pleural effusion is again noted. The pleural effusion is fairly similar to the prior study. There is no pneumothorax. IMPRESSION No significant change in the left pleural effusion. Dictated by... Scout Amaro M.D. THIS IS AN ELECTRONICALLY VERIFIED REPORT cSout Amaro M.D. at 08/21/2016 12:04 AM ETHAN/marta TD: 08/20/2016 07:14 JOB #: [id number] MEDICAL IMAGING REPORT Page 1 of 1 COPY
--- NOTE | ~2016-08-13 | CR72 ---
[facility] A Service of [facility] & [facility] RADIOLOGY TEXT RESULTS PATIENT: WENDY GARCIA LOCATION: [address] : [birth year] UNIT #: [id number] AGE: [address]: Luis Reyes MD SEX: M ORDER DR: [id number] [facility] [address] [facility]. [place], [place] [address] [id number] I MR#: [id number] Acc #: [id number] NAME: WENDY GARCIA : 1945 SEX: M STUDY DATE/TIME: 08/17/2016 04:32 UNIT: [facility] ROOM: [facility] STUDY DESCRIPTION: CR Chest Single View Portable Attending Physician: Luis Reyes M.D. Ordering Physician: Александр Brannon M.D. Primary Care Physician: Primary Care Physician No MEDICAL IMAGING REPORT This report is preliminary unless electronic signature is present EXAM Portable chest 08/17/2016 04:32 INDICATION Respiratory failure. Alcohol withdrawal. FINDINGS AP portable chest compared with 08/16/2016. Right IJ line in good position. Left chest tube remains in place within a loculated effusion. This loculated fluid collection appears slightly smaller. There may be a tiny left apical pneumothorax. Infiltrates in the right hnw-dx-jybkd lung are minimally improved. There is some continued consolidation at the left base but aeration in the left mid lung is also slightly improved. Dictated by... Ruben Raymundo Jr., M.D. THIS IS AN ELECTRONICALLY VERIFIED REPORT Ruben Raymundo Jr., M.D. at 08/17/2016 10:14 PM MARIAM/padmini TD: 08/17/2016 07:06 JOB #: [id number] MEDICAL IMAGING REPORT Page 1 of 1 COPY
--- NOTE | ~2016-08-13 | CO ---
Unit #: [id number] #: [id number] Patient: WENDY GARCIA [id number] [facility] [address] [place], [place] [address] [id number] I MR#: [id number] NAME: WENDY GARCIA ROOM: CICCU2 Age: 71 Sex: M Admission Date: 08/13/2016 : 1945 Attending Physician: Luis Reyes M.D. Consultation Date: 08/14/2016 CONSULTATION REPORT DICTATED FOR Dr. Saima Tucker, [facility], Cardiology. REASON FOR CONSULTATION Chest pain and shortness of breath. HISTORY OF PRESENT ILLNESS The patient is a 71-year-old white male, who has a medical historyof diastolic heart failure with an EF of 60%, COPD, end-stage renal disease - on hemodialysis, paroxysmal atrial fib, where he is only on aspirin due to history of GI bleed in 1997, hypertension, hyperlipidemia, and history of alcohol abuse with history of liver disease. The patient presented to the [facility]'s ED on 08/13/2016 with complaints of left-sided chest pain while lying in bed, Sunday evening, where he was unable to catch his breath, and his called EMS. The patient states that the shortness of breath had been noticeable for about a week or two, where he would notice that when he went downstairs to get his 's clothing, he would get short of breath with minimal activity; however, it became increasingly worse, where he began to feel short of breath while lying in bed, where he does lay pretty flat on two pillows only for his back pain. The patient complained of a productive cough, but the sputum was clear. He also complained of nausea, but denies any vomiting or diarrhea. He denies any kind of edema, but states that he did get a little lightheaded when the EMS picked him up and brought him into the hospital. The patient gets dialysis Sunday, Sunday, and Sunday. His last dialysis session was this past Sunday, where he was compliant with his dialysis regimen. The patient normally [facility] and states that he probably was there about a year ago. Cardiac cath in 2013 from the [facility] showed severe 2-vessel coronary artery disease involving the RCA, and the femoral and iliac arteries are heavily calcified. Last echo here at [facility] was in 07/2014 that showed an EF of 60%, moderate concentric LVH, RV was mildly dilated, calcified mitral apparatus with moderate MR, mild , mild AR, and RVSP of 30 to 40. The patient had a CT of the chest that showed a left large pleural effusion with multiple septations, involving the right lower lobe small pleural effusion with multiple ground-glass opacities in the right lower lobe, right middle lobe, and right base. Cardiology was consulted to help in assisting evaluation of the chest pain and shortness of breath. Unit #: [id number] #: [id number] Patient: WENDY GARCIA PAST MEDICAL HISTORY 1. Diastolic heart failure with an EF of 60% in 2014. 2. COPD. 3. End-stage renal disease, on hemodialysis Sunday, Sunday, and Sunday. 4. Paroxysmal atrial fibrillation. 5. Hypertension. 6. Hyperlipidemia. 7. Echo in 07/2014 with EF 60%, mild to moderate concentric LVH, RV mildly dilated, calcified mitral apparatus, moderate to severe MR, mild and AR, RVSP of 30 to 40. 8. History of alcohol abuse with a history of liver disease. PAST SURGICAL HISTORY Includes fistula placement. HOME MEDICATIONS Include; 1. Norvasc 10 mg p.o. daily. 2. Atorvastatin 80 mg p.o. daily. 3. Nitrostat 0.4 mg sublingual every 5 minutes as needed for chest pain. 4. Renvela 1600 mg p.o. 3 times a day. 5. Metoprolol tartrate 100 mg p.o. twice a day. 6. Spiriva daily. 7. Ventolin 2 puffs four times a day as needed. 8. Aspirin 81 mg p.o. daily. 9. Vitamin C 500 mg p.o. daily. 10. Flexeril 10 mg p.o. daily as needed for muscle spasms. 11. Imdur ER 60 mg p.o. daily. 12. Meclizine 25 mg p.o. q.8h p.r.n. dizziness. 13. Omeprazole 40 mg p.o. daily. 14. Tylenol 650 mg p.o. every 6 hours. ALLERGIES Include SHANTEL inhibitors, hydrocodone, adenosine, IV dye, and Zantac. REVIEW OF SYSTEMS See HPI. PHYSICAL EXAMINATION GENERAL: This is a 71-year-old white male, who is alert and oriented x3, in no apparent distress. VITAL SIGNS: Blood pressure 164/77, temperature 97.6, pulse 90, respirations 16. HEAD AND NECK: No lymphadenopathy. No carotid bruits. HEART: S1 and S2. No S3 or S4. No clicks. No rubs. Positive systolic ejection murmur. LUNGS: Diminished. ABDOMEN: Soft. Bowel sounds positive. Nontender. Nondistended. EXTREMITIES: No swelling. NEUROLOGIC: No neuro deficits noted. LABORATORY STUDIES Include hemoglobin of 7.1, white count 23, hematocrit 22.4, platelets 435. Sodium 135, potassium 4.3, chloride 97, CO2 21, glucose 134, BUN 77, creatinine 9.1, cholesterol 83, triglycerides 90, LDL 30, HDL 35, mag 2.5. Troponin 0.05. TSH 0.16. Blood cultures, no growth after 24 hours. Lactic 0.8. Unit #: [id number] #: [id number] Patient: WENDY GARCIA DIAGNOSTIC IMAGING CT of the chest that showed a large left pleural effusion with multiple septations, passive atelectasis in the left lower lobe and the left upper lobe, small right pleural effusion with atelectasis versus consolidation in the right lower lobe, and multiple ground-glass opacities and interstitial thickening in the right lower lobe, right middle lobe, and the base of the right upper lobe, emphysema. IMPRESSION 1. Acute respiratory failure. 2. Status post left thoracentesis with 250 mL of thick bloody drainage removed. 3. Atrial fibrillation with rapid ventricular response. 4. End-stage renal disease. 5. Diastolic heart failure. 6. Chronic obstructive pulmonary disease. 7. Hypertension. 8. Hyperlipidemia. 9. History of alcohol abuse. PLAN We will increase amiodarone to 1 mg/minute for 6 hours and back down to 0.5 mg/minute as the patient is in atrial fibrillation at this time. No anticoagulation for now secondary to anemia as well as possibility of a chest tube needing to be placed. We will check an EKG in the morning. Further recommendations pending current workup as well as plan of care for pleural effusion. Dictated by... YVETTE Puri TD: 08/15/2016 13:36 JOB #: [id number] CONSULTATION REPORT Page 1 of 1 X X CONSULTATION REPORT
--- NOTE | ~2016-08-13 | XA203 ---
[facility] A Service of [facility] RADIOLOGY TEXT RESULTS PATIENT: WENDY GARCIA LOCATION: [address] : [birth year] UNIT #: [id number] AGE: [address]: Luis Reyes MD SEX: M ORDER DR: [id number] [facility] [place], [place] [address] [id number] I MR#: [id number] Acc #: [id number] NAME: WENDY GARCIA : 1945 SEX: M STUDY DATE/TIME: 08/14/2016 10:30 [facility] STUDY DESCRIPTION: XA Thoracentesis Attending Physician: Luis Reyes M.D. Ordering Physician: Александр Brannon M.D. Primary Care Physician: No Primary Care Physician MEDICAL IMAGING REPORT This report is preliminary unless electronic signature is present EXAM Ultrasound-guided thoracentesis INDICATION Loculated left pleural effusion. PROCEDURE The risks, benefits, and alternatives to the procedure were explained to the patient and a signed, informed consent was obtained. Patient was placed in the upright position. Preliminary ultrasound at the left hemithorax was performed which demonstrated a complex collection of multiple septations noted. Overlying skin was marked. Patient was prepped and draped in usual sterile fashion. Timeout was performed as per protocol. Skin and subcutaneous tissues were anesthetized with buffered lidocaine. A Yueh catheter was advanced into the fluid with aspiration of bloody material. Catheter is hooked to suction tubing and I was ultimately able to remove about 250 mL of the thick bloody material. The catheter was then removed and manual pressure was applied until hemostasis was obtained. The patient tolerated the procedure well and there were no immediate complications. IMPRESSION Thoracentesis of the left hemithorax reveals very complex material which did not drain particularly well from the Yueh catheter. Ultimately, this patient will probably need a larger caliber tube. Thoracic surgery consultation is suggested. Ultrasound was used during the procedure and permanent images were saved. Dictated by... Taryn Allen M.D. [facility] Service of [facility] & [facility] RADIOLOGY TEXT RESULTS PATIENT: WENDY GARCIA LOCATION: CICCU2 CICCU2-08 : [birth year] UNIT #: [id number] AGE: [address]: Luis Reyes MD SEX: M ORDER DR: THIS IS AN ELECTRONICALLY VERIFIED REPORT Taryn Allen M.D. at 08/15/2016 4:42 PM AFF/aa TD: 08/15/2016 09:41 JOB #: [id number] MEDICAL IMAGING REPORT Page 1 of 1 COPY
--- NOTE | ~2016-08-13 | CO ---
Unit #: [id number] #: [id number] Patient: WENDY GARCIA [id number] [place], [place] [address] [id number] I MR#: [id number] NAME: WENDY GARCIA ROOM: CIC2 Age: 71 Sex: M Admission Date: 08/13/2016 : 1945 Attending Physician: Alena Mathias M.D. Primary Care Physician: Primary Care Physician No Consultation Date: 08/13/2016 CONSULTATION REPORT REASON FOR CONSULTATION Shortness of breath, hypoxemia. HISTORY OF PRESENT ILLNESS This is a 71-year-old male with a known history of end-stage renal disease, on hemodialysis. He states that a few days ago, he started developing increasing shortness of breath. He did not feel like they had taken enough fluid off him on dialysis. He was having sharp left-sided chest pain worse with inspiration. He had no fever or chills. No cough, but he did have what he describes as angina and took a nitroglycerin for and the chest pain resolved, but he still was short of breath. He finally could not take it anymore and came to the emergency room. The patient states he has never had a pleural effusion that he knows of. He has never had a thoracentesis. He has not had any recent colds or infections per him. He did smoke, but he said this was way in the past, but prior admission he said he is a lifelong smoker and he does take inhalers that he states he was diagnosed with asthma at age 10. He denies any family history of lung cancer. PAST MEDICAL HISTORY End-stage renal disease, on hemodialysis; diastolic heart dysfunction; COPD; coronary artery disease; chronic anemia; moderate mitral regurg; questionable history of paroxysmal atrial fibrillation; hypertension; dyslipidemia; chronic low back pain. PAST SURGICAL HISTORY Dialysis shunt left upper extremity. ALLERGIES SHANTEL inhibitor, hydrocodone, adenosine, IV dye, and Xanax. SOCIAL HISTORY The patient lives with his daughter. He has a history of tobacco and alcohol abuse, but he states none now. He states he is up to date on flu and pneumonia. No TB history. FAMILY HISTORY Diabetes and coronary artery disease. REVIEW OF SYSTEMS Complete review of systems was performed, pertinent positives include chief complaint. PHYSICAL EXAMINATION Unit #: [id number] #: [id number] Patient: WENDY GARCIA VITAL SIGNS: Currently are stable. He is afebrile. GENERAL: The patient is alert and oriented x3, on BiPAP, and appears comfortable. HEART: Regular rate and rhythm without murmur appreciated. No thrills palpated. LUNGS: Absent breath sounds left base laterally, there is egophony. Right is diminished. No egophony. No tachypnea. ABDOMEN: Soft, nontender. EXTREMITIES: Without clubbing, cyanosis, or edema. SKIN: Warm, dry, and intact. DIAGNOSTIC STUDIES IMAGING STUDIES: Chest x-ray reviewed. LABORATORY RESULTS: Laboratory studies reviewed. IMPRESSION 1. Shortness of breath and left-sided pleuritic chest pain secondary to large left possibly partially loculated pleural effusion. 2. Congestive heart failure. 3. End-stage renal disease, on hemodialysis. 4. Anemia. 5. Anemia. 6. Leukocytosis. 7. Moderate mitral regurgitation. 8. Paroxysmal atrial fibrillation. 9. History of chronic obstructive pulmonary disease or asthma. 10. Coronary artery disease with recent increasing angina. RECOMMENDATIONS 1. Discussed with the patient risks, benefits, and alternatives of thoracentesis and the patient is agreeable; however, we will get a CT of the chest and also to evaluate whether he needs any other additional procedures. 2. Repeat 2D echo, EKG if not done, troponins was if not done. 3. Bronchodilators. 4. Discontinue the BiPAP and check on oxygen, ABGs. Dictated by... Vielka Vega/erin TD: 08/14/2016 01:52 JOB #: [id number] CONSULTATION REPORT Page 1 of 1 X Julia Alba DO X CONSULTATION REPORT
--- NOTE | ~2016-08-13 | CR72 ---
[facility] A Service of [facility] & [facility] RADIOLOGY TEXT RESULTS PATIENT: WENDY GARCIA LOCATION: [address] : [birth year] UNIT #: [id number] AGE: [address]: Luis Reyes MD SEX: M ORDER DR: [id number] [facility] [address] [facility]. [place], [place] [address] [id number] I MR#: [id number] Acc #: [id number] NAME: WENDY GARCIA : 1945 SEX: M STUDY DATE/TIME: 08/15/2016 23:46 UNIT: [facility] ROOM: [facility] STUDY DESCRIPTION: CR Chest Single View Portable Attending Physician: Luis Reyes M.D. Ordering Physician: Shad Salinas M.D. Primary Care Physician: Primary Care Physician No MEDICAL IMAGING REPORT This report is preliminary unless electronic signature is present EXAM Portable chest 08/15/2016 at 23:46 INDICATIONS Chest tube placement tonight. Shortness of air. FINDINGS AP portable chest compared with earlier this evening. Left chest tube has been placed within the loculated left effusion. It does appears somewhat smaller in the interval. No pneumothorax on either side of the chest. There are continued infiltrates in both rzn-ye-kymhr lungs. Small right pleural effusion is unchanged. IJ line tip in the SVC. Dictated by... Ruben Raymundo Jr., M.D. THIS IS AN ELECTRONICALLY VERIFIED REPORT Ruben Raymundo Jr., M.D. at 08/16/2016 5:55 AM MARIAM/emily TD: 08/16/2016 02:14 JOB #: [id number] MEDICAL IMAGING REPORT Page 1 of 1 COPY
--- NOTE | ~2016-08-13 | CR72 ---
[facility] A Service of [facility] & [facility] RADIOLOGY TEXT RESULTS PATIENT: WENDY GARCIA LOCATION: [address] : [birth year] UNIT #: [id number] AGE: [address]: Luis Reyes MD SEX: M ORDER DR: [id number] [facility] [address] [facility]. [place], [place] [address] [id number] I MR#: [id number] Acc #: [id number] NAME: WENDY GARCIA : 1945 SEX: M STUDY DATE/TIME: 08/15/2016 19:51 UNIT: [facility] ROOM: [facility] STUDY DESCRIPTION: CR Chest Single View Portable Attending Physician: Luis Reyes M.D. Ordering Physician: Ed Doctor [id number] [facility] Primary Care Physician: No Primary Care Physician MEDICAL IMAGING REPORT This report is preliminary unless electronic signature is present EXAM Chest x-ray single-view portable HISTORY Pleural effusion. Evaluate central line today. No injury. COMMENT 2 frontal views of the chest submitted from 19:51 on 08/15/2016 for review to include the whole chest. Comparison is from earlier today. FINDINGS There has been retraction of the central venous catheter since earlier and it now terminates mid SVC level. There is again what is probably a large pleural effusion on the left side loculated more laterally with associated left mnb-hp-mmkjn lung airspace disease. Heart size is probably enlarged and partly obscured. Airspace disease at the right base is not significantly changed. There is likely some right pleural fluid. IMPRESSION Right IJ central venous catheters been repositioned. It is pulled back so that it terminates about mid SVC level currently. Otherwise no change in the abnormal chest x-ray. No pneumothorax. Dictated by... Izabel Fajardo M.D. THIS IS AN ELECTRONICALLY VERIFIED REPORT Izabel Fajardo M.D. at 08/15/2016 9:33 PM BRODIE/jayashree TD: 08/15/2016 21:05 [facility] A Service of [facility] & [facility] RADIOLOGY TEXT RESULTS PATIENT: WENDY GARCIA [facility] [birth year] UNIT #: [id number] AGE: [address]: Luis Reyes MD SEX: M ORDER DR: JOB #: [id number] MEDICAL IMAGING REPORT Page 1 of 1 COPY
[~2016-08-13 04:36] MED LIST: ALBUTEROL17 GM INH; ASCORBIC ACID500 M2 PO; ASCORBIC ACID500 M4 PO; ASPIRIN EC81 M1 PO; ATORVASTATIN CA80 MG PO; AZITHROMYCIN250 MG PO; CEFTIN500 MG PO; CORDARONE200 M1 PO; FLEXERIL10 MG PO; HYDROXYZINE PAM25 M1 PO; IMDUR-ER60 M2 PO; ISOSORBIDE MONO20 M1 PO; LASIX20 MG PO; LIDOCAINE-PRILOC5 GM TOP; LOPRESSOR PO; MECLIZINE HCL25 M2 PO; METOPROLOL TAR100 MG PO; NEPHRO-VITE RX T1 M1 PO; NITROSTAT0.4 MG SL; NORVASC10 MG PO; OMEPRAZOLE20 M2 PO; OMEPRAZOLE40 M1 PO; PANTOPRAZOLE SO40 MG PO; RENVELA800 MG PO; SPIRIVA; SPIRIVA18 MCG INH; STRIVERDI RESPIM4 GM INH; TYL325 PO; TYLENOL/CODEINE1 TA1 PO
[2016-08-13 04:52] LABS: BASOPHIL# 0.1 X10e3 (0-0.3); BASOPHIL% 0.8 % (0-2.5); EOSINOPHIL# 0.2 X10e3 (0-0.7); EOSINOPHIL% 1.4 % (0.0-7.0); HEMATOCRIT 26.4 % (38.0-50.0); HEMOGLOBIN 8.5 gm/dL (13.0-16.0); LYMPHOCYTE# 2.4 X10e3 (1.0-3.5); LYMPHOCYTE% 15.9 % (17.0-45.0); MEAN CELL VOLUME 94.3 FL (83-96); MEAN CORPUSCULAR HEMOGLOBIN 30.2 PG (28-34); MEAN PLATELET VOLUME 7.5 FL (6.5-11.5); MONOCYTE# 1.6 X10e3 (0-1.0); MONOCYTE% 10.8 % (3.0-12.0); NEUTROPHIL# 10.6 X10e3 (1.5-7.1); NEUTROPHIL% 71.1 % (40-75); PLATELET COUNT 551 X10e3 (140-420); RED CELL DISTRIBUTION WIDTH 16.1 % (11.0-15.5); WHITE BLOOD COUNT 14.9 X10e3 (4.0-10.5)
[2016-08-13 04:54] LABS: DIFF IND NO
[2016-08-13 05:05] LABS: POC - CKMB 2.8 ng/mL (0.0-7.9); POC - TROPONIN <0.05 ng/mL (<=0.05)
[2016-08-13 05:16] LABS: ALBUMIN SERUM 3.6 g/dL (3.5-5.0); BILIRUBIN,TOTAL 0.3 mg/dL (0.2-2.0); BUN/CREATININE RATIO 7.2; CREATININE SERUM 7.5 mg/dL (0.6-1.4); GLOM FILT RATE Estimated 6.6 mL/min (>60); POTASSIUM 3.2 mmol/L (3.5-5.1); PROTEIN TOTAL SERUM 8.2 g/dL (6.0-8.3)
[2016-08-13 05:32] LABS: ARTERIAL BLOOD GAS CARBOXY HB 2.2 %sat (0.0-9.0); ARTERIAL BLOOD GAS MET HB 0.6 %sat (0.0-2.0); ARTERIAL BLOOD GAS PCO2 39.8 mmHg (35.0-45.0); ARTERIAL BLOOD GAS pH 7.407 (7.350-7.450)
[2016-08-13 05:33] LABS: ARTERIAL BLOOD GAS ALLEN TEST NORMAL; ARTERIAL BLOOD GAS ART SITE RIGHT RADIAL; ARTERIAL BLOOD GAS DELIVERY BIPAP 14/6; ARTERIAL BLOOD GAS PO2 68.2 mmHg (80.0-100); ARTERIAL DRAW? YES
[2016-08-13 14:25] LABS: INR 1.1; PARTIAL THROMBOPLASTIN TIME 30.1 SECONDS (23.5-31.3); PROTHROMBIN TIME (PATIENT) 11.8 SECONDS (9.6-11.5)
[2016-08-13 22:25] LABS: BUN/CREATININE RATIO 8.04; CALCIUM SERUM 8.8 mg/dL (8.4-10.2); CREATININE SERUM 8.7 mg/dL (0.6-1.4); GLOM FILT RATE Estimated 5.6 mL/min (>60); MAGNESIUM 2.3 mg/dL (1.6-3.0); POTASSIUM 3.5 mmol/L (3.5-5.1)
[2016-08-14 04:47] LABS: HEMATOCRIT 22.4 % (38.0-50.0); HEMOGLOBIN 7.1 gm/dL (13.0-16.0); MEAN CELL VOLUME 93.2 FL (83-96); MEAN CORPUSCULAR HEMOGLOBIN 29.5 PG (28-34); MEAN CORPUSCULAR HGB CONC 31.7 g/dL (30-36); MEAN PLATELET VOLUME 7.9 FL (6.5-11.5); RED BLOOD COUNT 2.4 X10e (3.90-5.60); RED CELL DISTRIBUTION WIDTH 15.9 % (11.0-15.5)
[2016-08-14 05:13] LABS: BUN/CREATININE RATIO 8.46; CALCIUM SERUM 9.2 mg/dL (8.4-10.2); CREATININE SERUM 9.1 mg/dL (0.6-1.4); GLOM FILT RATE Estimated 5.3 mL/min (>60); MAGNESIUM 2.5 mg/dL (1.6-3.0); POTASSIUM 4.3 mmol/L (3.5-5.1)
[2016-08-14 14:11] LABS: PROTEIN, BODY FLUID 4.2 gm/dL
[2016-08-14 15:25] LABS: BODY FLUID APPEARANCE BLOODY; BODY FLUID SOURCE PLEURAL
[2016-08-15 05:21] LABS: BASOPHIL% 0.3 % (0-2.5); EOSINOPHIL% 0.1 % (0.0-7.0); HEMATOCRIT 18.5 % (38.0-50.0); INR 1.2; LYMPHOCYTE# 1.1 X10e3 (1.0-3.5); LYMPHOCYTE% 6.6 % (17.0-45.0); MEAN CELL VOLUME 92.8 FL (83-96); MEAN CORPUSCULAR HEMOGLOBIN 30.1 PG (28-34); MEAN CORPUSCULAR HGB CONC 32.4 g/dL (30-36); MEAN PLATELET VOLUME 7.1 FL (6.5-11.5); MONOCYTE# 1.6 X10e3 (0-1.0); NEUTROPHIL# 13.4 X10e3 (1.5-7.1); PARTIAL THROMBOPLASTIN TIME 27.3 SECONDS (23.5-31.3); PLATELET COUNT 353 X10e3 (140-420); PROTHROMBIN TIME (PATIENT) 12.4 SECONDS (9.6-11.5); RED BLOOD COUNT 1.99 X10e (3.90-5.60); RED CELL DISTRIBUTION WIDTH 16.4 % (11.0-15.5); WHITE BLOOD COUNT 16.2 X10e3 (4.0-10.5)
[2016-08-15 05:25] LABS: DIFF IND NO
[2016-08-15 06:15] LABS: BUN/CREATININE RATIO 7.64; CALCIUM SERUM 8.5 mg/dL (8.4-10.2); CREATININE SERUM 5.1 mg/dL (0.6-1.4); GLOM FILT RATE Estimated 10.6 mL/min (>60); POTASSIUM 3.7 mmol/L (3.5-5.1)
[2016-08-15 06:20] LABS: FREE T3 2.7 pg/mL (2.5-3.9)
[2016-08-15 06:21] LABS: FREE THYROXIN (T4) 0.98 ng/dL (0.58-1.64)
[2016-08-15 11:01] LABS: HEMATOCRIT 23.2 % (38.0-50.0); HEMOGLOBIN 7.4 gm/dL (13.0-16.0); MEAN CELL VOLUME 91.9 FL (83-96); MEAN CORPUSCULAR HEMOGLOBIN 29.2 PG (28-34); MEAN CORPUSCULAR HGB CONC 31.8 g/dL (30-36); MEAN PLATELET VOLUME 7.3 FL (6.5-11.5); RED BLOOD COUNT 2.52 X10e (3.90-5.60); WHITE BLOOD COUNT 16.1 X10e3 (4.0-10.5)
[2016-08-16 06:08] LABS: BASOPHIL# 0.1 X10e3 (0-0.3); BASOPHIL% 0.4 % (0-2.5); EOSINOPHIL# 0.1 X10e3 (0-0.7); EOSINOPHIL% 0.4 % (0.0-7.0); HEMATOCRIT 21.6 % (38.0-50.0); HEMOGLOBIN 7.1 gm/dL (13.0-16.0); LYMPHOCYTE# 0.7 X10e3 (1.0-3.5); LYMPHOCYTE% 4.9 % (17.0-45.0); MEAN CELL VOLUME 91.2 FL (83-96); MEAN CORPUSCULAR HEMOGLOBIN 29.8 PG (28-34); MEAN CORPUSCULAR HGB CONC 32.7 g/dL (30-36); MEAN PLATELET VOLUME 7.3 FL (6.5-11.5); MONOCYTE# 1.7 X10e3 (0-1.0); MONOCYTE% 12.3 % (3.0-12.0); NEUTROPHIL# 11.6 X10e3 (1.5-7.1); PLATELET COUNT 325 X10e3 (140-420); RED BLOOD COUNT 2.37 X10e (3.90-5.60); RED CELL DISTRIBUTION WIDTH 16.8 % (11.0-15.5); WHITE BLOOD COUNT 14.1 X10e3 (4.0-10.5)
[2016-08-16 06:11] LABS: DIFF IND YES
[2016-08-16 07:05] LABS: PLATELET ESTIMATE NORMAL (NORMAL); RBC NORMAL YES
[2016-08-16 07:06] LABS: ANISOCYTOSIS SL; MICROCYTOSIS SL; OVALOCYTES PRESENT
[2016-08-16 07:07] LABS: POIKILOCYTOSIS SL
[2016-08-16 07:25] LABS: BUN/CREATININE RATIO 8.08; CALCIUM SERUM 8.3 mg/dL (8.4-10.2); CREATININE SERUM 7.3 mg/dL (0.6-1.4); GLOM FILT RATE Estimated 6.9 mL/min (>60); POTASSIUM 3.9 mmol/L (3.5-5.1)
[2016-08-16 09:51] LABS: BUN/CREATININE RATIO 7.97; CALCIUM SERUM 8.3 mg/dL (8.4-10.2); CREATININE SERUM 7.4 mg/dL (0.6-1.4); GLOM FILT RATE Estimated 6.8 mL/min (>60); MAGNESIUM 2.3 mg/dL (1.6-3.0); POTASSIUM 3.9 mmol/L (3.5-5.1)
[2016-08-17 06:56] LABS: BASOPHIL# 0.1 X10e3 (0-0.3); EOSINOPHIL# 0.4 X10e3 (0-0.7); EOSINOPHIL% 2.7 % (0.0-7.0); HEMATOCRIT 26.5 % (38.0-50.0); HEMOGLOBIN 8.7 gm/dL (13.0-16.0); LYMPHOCYTE% 7.3 % (17.0-45.0); MEAN CELL VOLUME 91.3 FL (83-96); MEAN CORPUSCULAR HEMOGLOBIN 29.9 PG (28-34); MEAN CORPUSCULAR HGB CONC 32.7 g/dL (30-36); MONOCYTE# 1.6 X10e3 (0-1.0); MONOCYTE% 11.8 % (3.0-12.0); NEUTROPHIL# 10.3 X10e3 (1.5-7.1); NEUTROPHIL% 77.2 % (40-75); PLATELET COUNT 369 X10e3 (140-420); RED CELL DISTRIBUTION WIDTH 16.7 % (11.0-15.5); WHITE BLOOD COUNT 13.3 X10e3 (4.0-10.5)
[2016-08-17 06:57] LABS: DIFF IND NO
[2016-08-18 14:52] LABS: BASOPHIL# 0.1 X10e3 (0-0.3); BASOPHIL% 0.7 % (0-2.5); EOSINOPHIL# 0.5 X10e3 (0-0.7); EOSINOPHIL% 3.1 % (0.0-7.0); HEMATOCRIT 29.4 % (38.0-50.0); HEMOGLOBIN 9.5 gm/dL (13.0-16.0); LYMPHOCYTE# 0.4 X10e3 (1.0-3.5); LYMPHOCYTE% 2.8 % (17.0-45.0); MEAN CORPUSCULAR HEMOGLOBIN 29.6 PG (28-34); MEAN CORPUSCULAR HGB CONC 32.5 g/dL (30-36); MEAN PLATELET VOLUME 7.4 FL (6.5-11.5); MONOCYTE# 1.7 X10e3 (0-1.0); NEUTROPHIL# 12.4 X10e3 (1.5-7.1); NEUTROPHIL% 82.4 % (40-75); PLATELET COUNT 427 X10e3 (140-420); RED BLOOD COUNT 3.23 X10e (3.90-5.60)
[2016-08-18 14:53] LABS: DIFF IND NO
[2016-08-19 04:31] LABS: BASOPHIL# 0.1 X10e3 (0-0.3); BASOPHIL% 0.8 % (0-2.5); EOSINOPHIL# 0.6 X10e3 (0-0.7); EOSINOPHIL% 4.4 % (0.0-7.0); HEMATOCRIT 27.1 % (38.0-50.0); HEMOGLOBIN 8.8 gm/dL (13.0-16.0); LYMPHOCYTE# 0.8 X10e3 (1.0-3.5); LYMPHOCYTE% 5.9 % (17.0-45.0); MEAN CELL VOLUME 91.4 FL (83-96); MEAN CORPUSCULAR HEMOGLOBIN 29.8 PG (28-34); MEAN CORPUSCULAR HGB CONC 32.6 g/dL (30-36); MEAN PLATELET VOLUME 7.2 FL (6.5-11.5); MONOCYTE# 1.6 X10e3 (0-1.0); MONOCYTE% 11.6 % (3.0-12.0); NEUTROPHIL# 10.5 X10e3 (1.5-7.1); NEUTROPHIL% 77.3 % (40-75); PLATELET COUNT 379 X10e3 (140-420); RED BLOOD COUNT 2.96 X10e (3.90-5.60); RED CELL DISTRIBUTION WIDTH 16.4 % (11.0-15.5); WHITE BLOOD COUNT 13.5 X10e3 (4.0-10.5)
[2016-08-19 04:32] LABS: DIFF IND NO
[2016-08-19 06:01] LABS: BUN/CREATININE RATIO 5.32; CALCIUM SERUM 8.5 mg/dL (8.4-10.2); CREATININE SERUM 6.2 mg/dL (0.6-1.4); GLOM FILT RATE Estimated 8.4 mL/min (>60); POTASSIUM 3.8 mmol/L (3.5-5.1)
[2016-08-20 05:23] LABS: BASOPHIL# 0.1 X10e3 (0-0.3); BASOPHIL% 0.5 % (0-2.5); EOSINOPHIL# 0.6 X10e3 (0-0.7); EOSINOPHIL% 4.5 % (0.0-7.0); LYMPHOCYTE# 0.7 X10e3 (1.0-3.5); LYMPHOCYTE% 5.9 % (17.0-45.0); MEAN CELL VOLUME 91.2 FL (83-96); MEAN CORPUSCULAR HEMOGLOBIN 29.1 PG (28-34); MEAN CORPUSCULAR HGB CONC 31.9 g/dL (30-36); MEAN PLATELET VOLUME 7.3 FL (6.5-11.5); MONOCYTE# 1.9 X10e3 (0-1.0); NEUTROPHIL# 9.2 X10e3 (1.5-7.1); NEUTROPHIL% 74.1 % (40-75); PLATELET COUNT 330 X10e3 (140-420); RED BLOOD COUNT 2.74 X10e (3.90-5.60); RED CELL DISTRIBUTION WIDTH 16.1 % (11.0-15.5); WHITE BLOOD COUNT 12.5 X10e3 (4.0-10.5)
[2016-08-20 05:47] LABS: DIFF IND NO
[2016-08-20 06:37] LABS: BUN/CREATININE RATIO 5.6; CALCIUM SERUM 8.6 mg/dL (8.4-10.2); CREATININE SERUM 8.2 mg/dL (0.6-1.4); POTASSIUM 3.7 mmol/L (3.5-5.1)
[2016-08-21 10:41] LABS: BASOPHIL# 0.1 X10e3 (0-0.3); BASOPHIL% 0.6 % (0-2.5); DIFF IND YES; EOSINOPHIL# 0.2 X10e3 (0-0.7); EOSINOPHIL% 1.8 % (0.0-7.0); HEMATOCRIT 24.1 % (38.0-50.0); HEMOGLOBIN 7.9 gm/dL (13.0-16.0); LYMPHOCYTE# 0.4 X10e3 (1.0-3.5); LYMPHOCYTE% 2.9 % (17.0-45.0); MEAN CELL VOLUME 89.7 FL (83-96); MEAN CORPUSCULAR HEMOGLOBIN 29.3 PG (28-34); MEAN CORPUSCULAR HGB CONC 32.7 g/dL (30-36); MONOCYTE# 1.2 X10e3 (0-1.0); MONOCYTE% 9.5 % (3.0-12.0); NEUTROPHIL# 10.4 X10e3 (1.5-7.1); NEUTROPHIL% 85.2 % (40-75); PLATELET COUNT 299 X10e3 (140-420); RED BLOOD COUNT 2.69 X10e (3.90-5.60); RED CELL DISTRIBUTION WIDTH 16.2 % (11.0-15.5); WHITE BLOOD COUNT 12.2 X10e3 (4.0-10.5)
[2016-08-21 11:00] LABS: ANISOCYTOSIS SL; PLATELET ESTIMATE NORMAL (NORMAL)
[2016-08-21 11:06] LABS: BUN/CREATININE RATIO 5.67; CALCIUM SERUM 8.5 mg/dL (8.4-10.2); CREATININE SERUM 7.4 mg/dL (0.6-1.4); GLOM FILT RATE Estimated 6.8 mL/min (>60); MAGNESIUM 2.3 mg/dL (1.6-3.0); PHOSPHOROUS 4.3 mg/dL (2.5-4.6); POTASSIUM 3.8 mmol/L (3.5-5.1)
[2016-08-22 07:12] LABS: BASOPHIL# 0.1 X10e3 (0-0.3); EOSINOPHIL# 0.4 X10e3 (0-0.7); HEMATOCRIT 24.8 % (38.0-50.0); HEMOGLOBIN 7.9 gm/dL (13.0-16.0); LYMPHOCYTE# 1.1 X10e3 (1.0-3.5); LYMPHOCYTE% 8.9 % (17.0-45.0); MEAN CELL VOLUME 91.3 FL (83-96); MEAN CORPUSCULAR HEMOGLOBIN 29.1 PG (28-34); MEAN CORPUSCULAR HGB CONC 31.9 g/dL (30-36); MEAN PLATELET VOLUME 7.4 FL (6.5-11.5); MONOCYTE# 1.9 X10e3 (0-1.0); NEUTROPHIL# 8.4 X10e3 (1.5-7.1); NEUTROPHIL% 71.1 % (40-75); PLATELET COUNT 322 X10e3 (140-420); RED BLOOD COUNT 2.72 X10e (3.90-5.60); RED CELL DISTRIBUTION WIDTH 16.2 % (11.0-15.5); WHITE BLOOD COUNT 11.9 X10e3 (4.0-10.5)
[2016-08-22 07:14] LABS: DIFF IND NO
[2016-08-22 07:52] LABS: BUN/CREATININE RATIO 4.59; CALCIUM SERUM 8.4 mg/dL (8.4-10.2); CREATININE SERUM 6.1 mg/dL (0.6-1.4); GLOM FILT RATE Estimated 8.5 mL/min (>60); MAGNESIUM 2.3 mg/dL (1.6-3.0); PHOSPHOROUS 4.6 mg/dL (2.5-4.6); POTASSIUM 3.9 mmol/L (3.5-5.1)
[2016-08-23 09:11] LABS: BASOPHIL# 0.2 X10e3 (0-0.3); BASOPHIL% 1.2 % (0-2.5); EOSINOPHIL# 0.4 X10e3 (0-0.7); EOSINOPHIL% 3.1 % (0.0-7.0); LYMPHOCYTE# 0.9 X10e3 (1.0-3.5); LYMPHOCYTE% 6.8 % (17.0-45.0); MEAN CELL VOLUME 90.7 FL (83-96); MEAN CORPUSCULAR HEMOGLOBIN 29.8 PG (28-34); MEAN CORPUSCULAR HGB CONC 32.8 g/dL (30-36); MEAN PLATELET VOLUME 7.3 FL (6.5-11.5); MONOCYTE# 1.9 X10e3 (0-1.0); MONOCYTE% 14.9 % (3.0-12.0); NEUTROPHIL# 9.5 X10e3 (1.5-7.1); PLATELET COUNT 362 X10e3 (140-420); RED BLOOD COUNT 3.42 X10e (3.90-5.60); RED CELL DISTRIBUTION WIDTH 15.7 % (11.0-15.5); WHITE BLOOD COUNT 12.9 X10e3 (4.0-10.5)
[2016-08-23 09:15] LABS: DIFF IND NO; HEMOGLOBIN 10.2 gm/dL (13.0-16.0)
[2016-08-23 09:37] LABS: BUN/CREATININE RATIO 4.52; CALCIUM SERUM 9.2 mg/dL (8.4-10.2); CREATININE SERUM 5.3 mg/dL (0.6-1.4); GLOM FILT RATE Estimated 10.1 mL/min (>60); MAGNESIUM 2.2 mg/dL (1.6-3.0); PHOSPHOROUS 4.4 mg/dL (2.5-4.6)
[2016-08-23 15:59] LABS: ARTERIAL BLOOD GAS ALLEN TEST NORMAL; ARTERIAL BLOOD GAS ART SITE RIGHT RADIAL; ARTERIAL BLOOD GAS CARBOXY HB 1.6 %sat (0.0-9.0); ARTERIAL BLOOD GAS HCO3 28.7 mmol/L; ARTERIAL BLOOD GAS MET HB 0.6 %sat (0.0-2.0); ARTERIAL BLOOD GAS PCO2 39.1 mmHg (35.0-45.0); ARTERIAL BLOOD GAS PO2 43.2 mmHg (80.0-100); ARTERIAL BLOOD GAS pH 7.474 (7.350-7.450); ARTERIAL DRAW? YES
[2016-08-23 16:00] LABS: ARTERIAL BLOOD GAS DELIVERY ROOM AIR
[2016-08-24 06:39] LABS: BASOPHIL# 0.1 X10e3 (0-0.3); BASOPHIL% 1.1 % (0-2.5); EOSINOPHIL# 0.4 X10e3 (0-0.7); HEMATOCRIT 28.9 % (38.0-50.0); HEMOGLOBIN 9.3 gm/dL (13.0-16.0); LYMPHOCYTE# 1.2 X10e3 (1.0-3.5); LYMPHOCYTE% 9.6 % (17.0-45.0); MEAN CELL VOLUME 91.3 FL (83-96); MEAN CORPUSCULAR HEMOGLOBIN 29.5 PG (28-34); MEAN CORPUSCULAR HGB CONC 32.3 g/dL (30-36); MEAN PLATELET VOLUME 7.5 FL (6.5-11.5); MONOCYTE% 15.4 % (3.0-12.0); NEUTROPHIL# 9.1 X10e3 (1.5-7.1); NEUTROPHIL% 70.9 % (40-75); PLATELET COUNT 324 X10e3 (140-420); RED BLOOD COUNT 3.16 X10e (3.90-5.60); RED CELL DISTRIBUTION WIDTH 15.6 % (11.0-15.5); WHITE BLOOD COUNT 12.9 X10e3 (4.0-10.5)
[2016-08-24 06:47] LABS: DIFF IND NO
[2016-08-24 08:36] LABS: CALCIUM SERUM 9.1 mg/dL (8.4-10.2); CREATININE SERUM 4.8 mg/dL (0.6-1.4); GLOM FILT RATE Estimated 11.4 mL/min (>60); MAGNESIUM 2.2 mg/dL (1.6-3.0); POTASSIUM 3.9 mmol/L (3.5-5.1)
[2016-08-24] MEDS ORDERED: AMIODARONE PO (12:14)
[2016-08-24] MEDS ORDERED: TRAMADOL HCL50 M2 PO (12:21)
[2016-08-24] MEDS ORDERED: LIPITOR80 MG PO (12:22)
[2016-08-24] MEDS ORDERED: PROCRIT10000 UNIT INJ (12:22)
[2016-08-24] MEDS ORDERED: ZEMPLAR1 MCG IV (12:26)
[2016-08-24] MEDS ORDERED: RENAGEL800 MG PO (12:26)
[2016-08-24] MEDS ORDERED: AUGMENTIN PO (12:28)
[2016-08-24] MEDS ORDERED: DUONEB (12:29)
== END 2016-08-24 15:09 | disposition home or self-care (01) | DRG 871 ==
LOC: CED 04:36 → C5B 05:30 → CEDOF 05:30 → CICCU2 05:30 → CED 05:51 → CEDOF 05:51 → CICCU2 20:00 → C5B 08-20 19:03
PROVIDERS: Emergency Medicine; Family Medicine; Internal Medicine; Internal Medicine Cardiovascular Disease; Internal Medicine Nephrology; Internal Medicine Pulmonary Disease; Surgery
PROC: B24BYZZ Ultrasonography of Heart with Aorta using Other Contrast (ICD-10-PCS; 2016-08-13)
PROC: 0W9B30Z Drainage of Left Pleural Cavity with Drainage Device, Percutaneous Approach (ICD-10-PCS; 2016-08-14)
PROC: 02HV33Z Insertion of Infusion Device into Superior Vena Cava, Percutaneous Approach (ICD-10-PCS; 2016-08-14)
PROC: B518YZA Fluoroscopy of Superior Vena Cava using Other Contrast, Guidance (ICD-10-PCS; 2016-08-14)
PROC: B548ZZA Ultrasonography of Superior Vena Cava, Guidance (ICD-10-PCS; 2016-08-14)
PROC: 0W9B30Z Drainage of Left Pleural Cavity with Drainage Device, Percutaneous Approach (ICD-10-PCS; 2016-08-15)
PROC: 30233N1 Transfusion of Nonautologous Red Blood Cells into Peripheral Vein, Percutaneous Approach (ICD-10-PCS; 2016-08-15)
PROC: 5A1D60Z (ICD-10-PCS; principal; 2016-08-16)
DX: A41.9 Sepsis, unspecified organism (principal); J18.9 Pneumonia, unspecified organism; J96.21 Acute and chronic respiratory failure with hypoxia; R65.21 Severe sepsis with septic shock; I50.31 Acute diastolic (congestive) heart failure; J90 Pleural effusion, not elsewhere classified; N18.6 End stage renal disease; I48.0 Paroxysmal atrial fibrillation; D62 Acute posthemorrhagic anemia; I13.2 Hypertensive heart and chronic kidney disease with heart failure and with stage 5 chronic kidney disease, or end stage renal disease; Z87.891 Personal history of nicotine dependence; J44.9 Chronic obstructive pulmonary disease, unspecified; I25.10 Atherosclerotic heart disease of native coronary artery without angina pectoris; K21.9 Gastro-esophageal reflux disease without esophagitis; E78.5 Hyperlipidemia, unspecified; Z79.82 Long term (current) use of aspirin; Z91.041 Radiographic dye allergy status; Z99.2 Dependence on renal dialysis; D72.829 Elevated white blood cell count, unspecified; I08.3 Combined rheumatic disorders of mitral, aortic and tricuspid valves
CPT/HCPCS: 36415; 36600; 71010; 71250; 76942; 77001; 80048; 80053; 80061; 80202; 82274; 82553; 82728; 82803; 82945; 83540; 83550; 83605; 83615; 83735; 83880; 83986; 84100; 84157; 84439; 84443; 84481; 84484; 85025; 85027; 85610; 85730; 86850; 86900; 86901; 86923; 87040; 87070; 87116; 87205; 87206; 88108; 88305; 89051; 93005; 93306; 94640; 94644; 94660; 94664; 94760; 94761; 96365; 96368; 96375; 99285; C1894; C9113; J0282; J0456; J0696; J2501; J2543; J2930; J2997; J3370; P9016; Q4081

== ENCOUNTER 2016-09-01 01:22 | Inpatient (IN) | payer MEDICARE ==
--- NOTE | ~2016-09-01 | CR71 ---
[facility] A Service of [facility] RADIOLOGY TEXT RESULTS PATIENT: WENDY GARCIA LOCATION: [facility] [address] : [birth year] UNIT #: [id number] AGE: [address]: Luis Reyes MD SEX: M ORDER DR: [id number] [place], [place] [address] [id number] I MR#: [id number] Acc #: [id number] NAME: WENDY GARCIA : 1945 SEX: M STUDY DATE/TIME: 09/01/2016 14:49 UNIT: [facility] ROOM: [facility] STUDY DESCRIPTION: CR Chest Single View Attending Physician: Luis Reyes M.D. Primary Care Physician: No Primary Care Physician MEDICAL IMAGING REPORT This report is preliminary unless electronic signature is present EXAM Portable chest x-ray, 09/01/16 HISTORY Post thoracentesis. FINDINGS AP radiograph of the chest is presented. COMPARISON STUDIES 09/01/2016 02:24 hours. FINDINGS No acute bony abnormality. Stable cardiac enlargement. Ongoing pulmonary vascular congestion. Interstitial prominence persists but is less pronounced than on prior study. Patchy airspace densities in the bilateral muh-ju-zzadr lung zones improved particularly on the right. Small bilateral pleural effusions. The patient appears to have undergone right thoracentesis. Volume of right pleural fluid is significantly decreased from earlier study. No pneumothorax. Left pleural effusion unchanged. Continued followup to radiographic resolution of above abnormalities recommended. Dictated by... Ant Puga M.D. THIS IS AN ELECTRONICALLY VERIFIED REPORT Ant Puga M.D. at 09/03/2016 10:44 PM JAYSHREE/jayashree [facility] RADIOLOGY TEXT RESULTS PATIENT: WENDY GARCIA LOCATION: [facility] 576-01 : [birth year] UNIT #: [id number] AGE: [address]: Luis Reyes MD SEX: M ORDER DR: TD: 09/01/2016 21:45 JOB #: [id number] MEDICAL IMAGING REPORT Page 1 of 1 COPY
--- NOTE | ~2016-09-01 | CR72 ---
[facility] A Service of [facility] & [facility] RADIOLOGY TEXT RESULTS PATIENT: WENDY GARCIA LOCATION: [place] [address] : 46 UNIT #: [id number] AGE: [address]: Luis Reyes MD SEX: M ORDER DR: [id number] [facility] [address] [facility] [place] [facility]. [place], [place] [address] [id number] I MR#: [id number] Acc #: [id number] NAME: WENDY GARCIA : 1945 SEX: M STUDY DATE/TIME: 09/02/2016 6:05 UNIT: [facility] ROOM: [facility] STUDY DESCRIPTION: CR Chest Single View Portable Attending Physician: Luis Reyes M.D. Ordering Physician: Александр Brannon M.D. MEDICAL IMAGING REPORT This report is preliminary unless electronic signature is present EXAM Portable chest HISTORY Shortness of air. Asthma. Probable effusion. COMPARISON STUDIES 09/01. FINDINGS Today's portable view of the chest is unchanged from yesterday's study. There are small pleural effusions. The heart is mildly enlarged. There are no definite infiltrates. Dictated by... Santi Saleh M.D. THIS IS AN ELECTRONICALLY VERIFIED REPORT Santi Saleh M.D. at 09/02/2016 2:56 PM FEL/pcl TD: 09/02/2016 14:52 JOB #: [id number] MEDICAL IMAGING REPORT Page 1 of 1 COPY
--- NOTE | ~2016-09-01 | HP ---
Unit #: [id number] #: [id number] Patient: WENDY GARCIA [id number] [address] [place], [place] [address] [id number] I MR#: [id number] NAME: WENDY GARCIA ROOM: 80465 Age: 71 Sex: M Admission Date: 09/01/2016 : 1945 Attending Physician: Luis Reyes M.D. Primary Care Physician: No Primary Care Physician HISTORY AND PHYSICAL REASON FOR ADMISSION Dyspnea/shortness of breath. HISTORY OF PRESENT ILLNESS The patient is a very pleasant 71-year-old male with underlying history of heart failure, endstage renal disease - followed by [facility], COPD, diabetes, anemia, atrial fibrillation, coronary artery disease, hypertension. He had actually been recently admitted to our particular hospital from August 13 through August 23 for similar circumstance. Through that hospital course he had been treated for pneumonia, as well as pleural effusions and had undergone both thoracentesis, as well as chest tube placement. His routine electrician is Dr. Brannon. Through that hospital course, he had also undergone a two-D echocardiogram, which did show [id number] tricuspid regurgitation, moderate pulmonary hypertension, as well as diastolic dysfunction. He has a prior history of chronic atrial fibrillation; however, he was deemed a poor anticoagulation candidate secondary to associated co-morbid conditions. He states he went home, and over the past week or so while he was at home, he began developing increased work of breathing, dyspnea and subsequently called EMS services. While he was evaluated, his O2 saturations were noted to be approximately 80% and subsequently he was transferred to [facility] for further evaluation. At the present time he is currently on O2 support. He has received healthcare-acquired pneumonia protocol, as well as Solu-Medrol 125 mg IV x1, and he states that he feels slightly better this morning. PAST MEDICAL HISTORY 1. Diastolic dysfunction. 2. Endstage kidney disease, followed by [facility], on hemodialysis. 3. Endstage COPD, on home O2. 4. Anemia. 5. Coronary artery disease. 6. Paroxysmal atrial fibrillation, on no chronic anticoagulation. 7. GERD. 8. Hyperlipidemia. 9. Chronic deconditioning. 10. Recent hospital admission secondary to pneumonia and/or pleural effusion. Unit #: [id number] #: [id number] Patient: WENDY GARCIA PAST SURGICAL HISTORY Fistula placement, arm. HOME MEDICATIONS Norvasc, Renvela, Lopressor, aspirin, vitamin C, Imdur, Protonix, amiodarone, Procrit, Lipitor, Zemplar, DuoNeb aerosol solution, sublingual nitroglycerin, Flexeril, Antivert, Tylenol, tramadol. ALLERGIES SHANTEL inhibitors, hydrocodone, adenosine. FAMILY HISTORY Reviewed, noncontributory, not pertinent to this advanced age individual. SOCIAL HISTORY Quit smoking several years ago after approximate 50 to 75 pack-year smoking history. No alcohol use. No illicit drug use. REVIEW OF SYSTEMS Please see HPI. A 12-point review was, otherwise, negative except for those positively noted in the HPI. PHYSICAL EXAMINATION VITAL SIGNS: Pulse 93, respirations 20, blood pressure 111/60. GENERAL APPEARANCE: Frail 71-year-old male lying comfortably in no acute distress. Currently on 4 liters O2. HEAD EXAM: Atraumatic. EAR EXAM: Tympanic membranes do not reveal any erythema or injection. NECK: Supple. CVS EXAM: S1, S2 with positive grade 2 to 3 systolic ejection murmur. RESPIRATORY: Coarse rhonchi are noted bilaterally. GI/ABDOMEN: Nontender, nondistended. LOWER EXTREMITIES: No evidence of any lower extremity edema. No calf tenderness. NEUROLOGIC EXAM: The patient is alert and oriented x3. No evidence of any focal nerve deficits. ER COURSE Patient received Solu-Medrol. Healthcare-acquired pneumonia protocol was initiated. DIAGNOSTIC STUDIES IMAGING: Initial "laboratory studies" show a chest x-ray on 09/01/2016 showing new right pleural effusion is moderate in size, stable small left pleural effusion was noted. Increasing ill-defined opacities in the mid to lower lung zones thought to represent edema. LABORATORY: Cardiac enzymes set negative. BNP 2,134. CBC shows a hemoglobin of 7.9. WBC count 12.7. Lactic acid level 1.2. BMP shows a creatinine of 7.2, GFR 7. Initial ABG shows a pH of 7.41, pO2 of 59, pCO2 of 39. INITIAL ADMISSION DIAGNOSES 1. Acute hypoxic respiratory failure. 2. COPD exacerbation. 3. Chronic respiratory failure/endstage COPD. 4. Presumed healthcare-acquired pneumonia. 5. Pleural effusions. Unit #: [id number] #: [id number] Patient: WENDY GARCIA 6. Volume overload. 7. Elevated BNP. 8. Endstage renal disease. 9. Prior history of valvular heart disease. 10. Diastolic dysfunction. 11. Anemia. Baseline hemoglobin between 8 and 9. 12. Atrial fibrillation, not on chronic anticoagulation secondary to anemia with numerous blood transfusions in the past. 13. Chronic immobility syndrome. 14. Hypertension. 15. Hyperlipidemia. 16. GERD. PLAN 1. Admission. 2. Pulmonary consultation. 3. Nephrology consultation. 4. Cardiology consultation. 5. Patient to have hemodialysis as soon as possible for volume management. 6. Routine laboratory studies. 7. Healthcare-acquired pneumonia protocol has already been started. 8. I will discontinue tobramycin now, as it seems as though it may be more volume related rather than acute infiltrate; however, I will defer further antibiotics to the discretion of Dr. Brannon and pulmonary service. 9. He will undergo routine respiratory support including O2, Solu-Medrol, aerosols. Symptom management will be achieved, as well. 10. Cardiology to follow in regard to prior history of diastolic dysfunction, as well as valvular heart disease. 11. Consideration may be given to rehab placement at time of discharge secondary to recent hospital admission, as well as chronic deconditioning. 12. Further hospital course to follow. 13. Patient is full code. Dictated by Jose Alfredo Chapman/danyel TD: 09/01/2016 12:38 JOB #: [id number] HISTORY AND PHYSICAL Page 1 of 1 X Luis Reyes MD X HISTORY AND PHYSICAL
--- NOTE | ~2016-09-01 | CO ---
Unit #: [id number] #: [id number] Patient: WENDY HAYDEN [id number] [address] [place], [place] [address] [id number] I MR#: [id number] NAME: WENDY HAYDEN ROOM: CIC3 Age: 71 Sex: M Admission Date: 09/01/2016 : 1945 Attending Physician: Luis Reyes M.D. Primary Care Physician: Samina Primary Care Physician Consultation Date: 09/01/2016 CONSULTATION REPORT REASON FOR CONSULTATION Shortness of breath, respiratory failure. HISTORY OF PRESENT ILLNESS Mr. Hayden is a 71-year-old gentleman, who has end-stage kidney disease, congestive heart failure, COPD, who was recently at this institution for pneumonia, complicated parapneumonic effusion, underwent chest tube placement. He actually did very well with pretty much resolution of his left-sided effusion. He was discharged in improved condition on antibiotics. He presents to the emergency room with basically a one-day history of shortness of breath. He said he was short of air despite wearing his oxygen. He denied significant sputum production, hemoptysis, wheezing. He did have some peripheral edema. He had a chest discomfort which was atypical and he states would improve when he was placed on BiPAP. He is asking once again to be placed on BiPAP for this vague chest discomfort. PAST MEDICAL HISTORY 1. COPD. 2. Pneumonia with complicated parapneumonic effusion on the left, status post chest tube. 3. He has a history of diastolic heart failure. 4. End-stage kidney disease. 5. Paroxysmal atrial fibrillation. 6. Hypertension. 7. Hyperlipidemia. 8. History of alcohol abuse with liver disease. MEDICATIONS Medications at home: He has oxygen at home. He was prescribed some inhaled bronchodilators but did not get those because they were too expensive. He is asking the [facility] for help, but has not received any inhaled medications. A formal med rec sheet is not available. Medicines are taken from his ER face sheet and include: 1. Norvasc. 2. Renvela. 3. Lopressor. 4. Aspirin. 5. Flexeril. 6. Imdur. 7. Meclizine. 8. Omeprazole. 9. Cordarone. 10. Tramadol. Unit #: [id number] #: [id number] Patient: WENDY HAYDEN 11. Lipitor. 12. Zemplar. 13. Nebulized bronchodilators. 14. He apparently was on other bronchodilators which are unclear. ALLERGIES SHANTEL inhibitors, hydrocodone, adenosine. SOCIAL HISTORY He apparently is a reformed tobacco user. FAMILY HISTORY No familial lung disease. REVIEW OF SYSTEMS No fever, chills. He did not miss dialysis. He has had some trace peripheral edema. No leg pain. No hemoptysis. No pleurisy. No difficulty swallowing such as coughing or choking. Further review of systems is negative. PHYSICAL EXAMINATION GENERAL: Examination reveals a gentleman who is in no acute distress, mildly short of air appearing. VITAL SIGNS: He is afebrile. Pulse 103, respiratory rate 16, blood pressure 102/60. Height 5 foot 8 inches, 150 pounds. HEENT: Pupils equal, round, and reactive to light. Sclerae anicteric. Head atraumatic. Mucous membranes moist. NECK: Supple. No supraclavicular or cervical adenopathy appreciated. CHEST: Decreased breath sounds. No juan wheeze, stridor, consolidation. He has somewhat more decreased breath sounds at the right base. CARDIAC: Reveals a regular rate and rhythm. He does have a systolic murmur. Occasional ectopic beat. ABDOMEN: Soft, nontender. No hepatomegaly, rebound. EXTREMITIES: Reveal no clubbing, cyanosis. Trace edema. Calves are nontender. NEUROLOGIC: Grossly intact. No focal muscle or sensory deficits. SKIN: Warm and dry. DIAGNOSTIC STUDIES LABORATORY: Arterial blood gas: A pH is 7.41, pCO2 of 39, pO2 of 59 on 4 L. His BUN is 56, creatinine is 7. BNP 2139. INR normal. Cardiac enzymes initially normal. White blood cell count 12.7, hemoglobin 7.9, platelet count 548,000. Blood cultures performed and are pending. IMAGING: Chest x-ray now appears to have a right-sided somewhat loculated pleural effusion. There is evidence of interstitial edema. No definite pneumonia. CARDIOVASCULAR: EKG: No definite acute ischemia changes. IMPRESSION 1. Shortness of breath, I suspect related to pulmonary edema. 2. Right pleural effusion, unknown etiology. Statistically, it would be related to his heart and kidney disease. There is a fair lack of symptoms to suggest pneumonia; however, he did recently have pneumonia within empyema. 3. End-stage kidney disease. 4. Chronic obstructive pulmonary disease. Unit #: [id number] #: [id number] Patient: WENDY HAYDEN 5. Medical problems listed above. PLAN Continue antibiotics for now. Will check a procalcitonin level. He is to receive hemodialysis. Continue noninvasive mask ventilation intermittently as needed and at night with sleep. I will ask for thoracentesis by interventional radiology. I called their number and there was no answer. I left a message on their voice mail. If this appears to be pneumonia, I would consider a swallow evaluation for silent aspiration. He has very poor dentition and I would consider outpatient teeth extraction. Thank you very much for allowing me to participate in the care of Mr. Hayden. Dictated by... Александр Brannon M.D. MENDEZ/horacio TD: 09/02/2016 10:08 JOB #: [id number] CONSULTATION REPORT Page 1 of 1 X Александр Brannon MD X CONSULTATION REPORT
--- NOTE | ~2016-09-01 | EKG ---
PATIENT: WENDY GARCIA UNIT #: [id number] Ventricular Rate: 95 BPM Atrial Rate: 92 BPM P-R Interval: 206 ms QRS Duration: 100 ms Q-T Interval: 400 ms QTC Calculation(Bezet): 502 ms P [place]: -24 degrees Calculated R [place]: 21 degrees Calculated T [place]: 44 degrees Diagnosis Line: Unusual P axis, possible ectopic atrial rhythm Diagnosis Line: Prolonged QT Diagnosis Line: Abnormal ECG Diagnosis Line: No previous ECGs available Diagnosis Line: Confirmed by MOJGAN CLAROS MD ([id number]) on Diagnosis Line: 09/02/2016 1:30:35 PM INTERPRETING MD: ARTHUR
--- NOTE | ~2016-09-01 | EKG ---
PATIENT: WENDY GARCIA UNIT #: [id number] Ventricular Rate: 97 BPM Atrial Rate: 97 BPM P-R Interval: 170 ms QRS Duration: 98 ms Q-T Interval: 376 ms QTC Calculation(Bezet): 477 ms P [place]: 18 degrees Calculated R [place]: 1 degrees Calculated T [place]: 30 degrees Diagnosis Line: Sinus rhythm with Premature atrial complexes Diagnosis Line: Nonspecific ST abnormality Diagnosis Line: Abnormal ECG 5 Diagnosis Line: When compared with ECG of 02-SEP-2016 07:37, Diagnosis Line: Sinus rhythm has replaced Ectopic atrial rhythm Diagnosis Line: Confirmed by MOJGAN CLAROS MD ([id number]) on Diagnosis Line: 09/03/2016 10:25:52 PM INTERPRETING MD: ARTHUR
--- NOTE | ~2016-09-01 | CO ---
Unit #: [id number] #: [id number] Patient: WENDY GARCIA [id number] [address] [address] [id number] I MR#: [id number] NAME: WENDY GARCIA ROOM: CIC3 Age: 71 Sex: M Admission Date: 09/01/2016 : 1945 Attending Physician: Luis Reyes M.D. Primary Care Physician: No Primary Care Physician Consultation Date: 09/01/2016 CONSULTATION REPORT HISTORY OF PRESENT ILLNESS This 71-year-old white male with endstage renal disease on dialysis Sunday, Sunday and Sunday, chronic obstructive pulmonary disease, diabetes, atrial fibrillation and coronary artery disease, is a [facility]. [facility] does not come here. The patient's last dialysis was Sunday. He woke up night and felt very short of air and came to the emergency room. In the emergency room he had evidence of congestive heart failure and also pleural effusions. He was just discharged from this hospital on 08/23/2016 for pneumonia. PAST MEDICAL HISTORY 1. Endstage renal disease on dialysis Sunday, Sunday and Sunday, followed by [facility]. 2. Endstage chronic obstructive pulmonary disease on home oxygen. 3. Coronary artery disease. 4. Paroxysmal atrial fibrillation. 5. Hyperlipidemia. PAST SURGICAL HISTORY Left upper extremity fistula placement. SOCIAL HISTORY The patient is . He has been a lifelong smoker. He quit a few years ago. No alcohol use. FAMILY HISTORY Noncontributory. ALLERGIES SHANTEL inhibitors, hydrocodone, adenosine. HOME MEDICATIONS 1. Norvasc. 2. Renvela. 3. Antivert. 4. Flexeril. 5. Duo-Nebs. 6. Zemplar. 7. Lipitor. 8. Procrit. 9. Amiodarone. 10. Protonix. 11. Imdur. Unit #: [id number] #: [id number] Patient: WENDY GARCIA 12. Aspirin. REVIEW OF SYSTEMS At present he denies shortness of breath or chest pain. No nausea, vomiting or diarrhea. He says he feels much better. No fever or chills. No cough. Other 13 systems review unless noted is negative. PHYSICAL EXAMINATION GENERAL: Very pleasant white male on 2 liters of oxygen. He is alert and oriented times four. VITALS: Blood pressure 132/60, heart rate 87, afebrile. HEENT: Extraocular muscles are intact. No eye drainage or icterus. Oropharynx is clear. NECK: Supple without jugular venous distension, thyromegaly or carotid bruits. CHEST: Decreased breath sounds in the bases, but no crackles. HEART: S1 and S2. Normal sinus rhythm. No gallop or rub. He has a 3/6 systolic ejection murmur, probably related to fistula. ABDOMEN: Soft, nontender and nondistended. Positive bowel sounds. EXTREMITIES: No cyanosis, clubbing or edema. He has a left upper extremity fistula that is patent. DIAGNOSTIC STUDIES LABORATORY: BUN 56, creatinine 7.2, glucose 161, potassium 3.7, bicarbonate 26, calcium 8.3, phosphorus 4.0, albumin 2.6, hemoglobin 7.9, white blood cell count 12.7, platelets 548. CARDIOVASCULAR: ASSESSMENT 1. Endstage renal disease with pulmonary edema. He is status post hemodialysis in the emergency room with removal of 3 liters. He is now oxygenating at baseline on 2 liters nasal cannula. 2. Pleural effusion. He is status post a left-sided thoracentesis with removal of 650 cc of fluid. 3. Anemia of chronic kidney disease versus blood loss. Will check some stool hemoccults and also some iron studies. He denies any bleeding. We will see how him hemoglobins are trending following fluid removal. 4. Chronic obstructive pulmonary disease on home oxygen at 2 liters. 5. Diastolic dysfunction. Cardiology has been consulted. Thank you very much for allowing me to see this pleasant gentleman in consultation. Will follow closely with you. Dictated by... Ana Suh M.D. Iam TD: 09/02/2016 12:36 JOB #: [id number] CC: Edwin Saunders M.D. Unit #: [id number] #: [id number] Patient: WENDY GARCIA CONSULTATION REPORT Page 1 of 1 X Ana Suh MD CONSULTATION REPORT
--- NOTE | ~2016-09-01 | DS ---
Unit #: [id number] #: [id number] Patient: WENDY GARCIA [id number] [address] [place], [place] [address] [id number] I MR#: [id number] NAME: WENDY GARCIA ROOM: 576 Age: 71 Sex: M Admission Date: 09/01/2016 : 1945 Discharge Date: 09/06/2016 Attending Physician: Luis Reyes M.D. Primary Care Physician: No Primary Care Physician DISCHARGE SUMMARY REASON FOR ADMISSION Acute hypoxic respiratory failure. HISTORY OF PRESENT ILLNESS/HOSPITAL COURSE The patient is a very pleasant 71-year-old male with underlying history of heart failure, endstage renal disease - followed by [facility], COPD, diabetes, anemia and atrial fibrillation who presented secondary to above. He had recently been admitted to our particular hospital from August 13 through August 23 for similar circumstances. He stated that he went home, began developing increased work of breathing. He subsequently presented to the ER. Through initial part of hospital course, he was noted to have a right-sided pleural effusion. We placed consultation to Dr. Brannon and associates for evaluation. Ultimately, through this course, the patient underwent thoracentesis on the right side. Post procedure he, otherwise, did well. There were no acute complications. Dr. Brannon continued to follow the patient through his hospital course. He was transitioned from Solu-Medrol, as well as IV antibiotics, to p.o. antibiotics, as well. Dr. Brannon brought up concern for possible underlying aspiration and/or silent aspiration. Therefore, I asked speech therapy to evaluate the patient. Upon initial evaluation they recommended video swallow function study. However, the patient stated that he felt uncomfortable with the dye secondary to his kidney issues; therefore, he refused. At this point in time, he does have a slightly higher aspiration risk, but if he has recurrent hospital admissions, he stated that he would reconsider performing the video swallow function study at a later point in time. He was also noted to have a procalcitonin level greater than 200. Clinical concern for sepsis was brought up; however, the patient improved every day while he was here in the hospital. He did not have a picture that was consistent with a sepsis-like picture. Repeat procalcitonin did decrease to 75; however, again, he showed clinical improvement. In regard to his history of paroxysmal atrial fibrillation, as well as prior history of heart failure, we placed consultation to Dr. Tucker and associates for evaluation, as they had seen the patient in the past. They adjusted his medications to where he will be currently taking Cardizem 120 mg p.o. b.i.d., as well as his amiodarone on a daily basis. He will be Unit #: [id number] #: [id number] Patient: WENDY GARCIA following up with [facility] as an outpatient for ongoing care. In regard to his prior history of endstage renal disease, we did place consultation to [facility]. He underwent hemodialysis through his hospital course here. He was noted to have a decreased hemoglobin of approximately 7.5; thus, he was transfused during dialysis today. At this point in time he is stable once again for discharge. He does require home O2 secondary to endstage COPD. He was asked to follow up with the [facility] for ongoing care in the next 7-10 days. Overall, his prognosis is guarded secondary to his numerous medical conditions. FINAL DISCHARGE DIAGNOSES 1. Acute on chronic hypoxic respiratory failure. 2. Chronic renal failure, on home oxygen between 2 to 4 liters. 3. Endstage chronic obstructive pulmonary disease. 4. History of paroxysmal atrial fibrillation, on no chronic anticoagulation secondary to anemia and/or recurrent GI bleeding. 5. Pneumonia, healthcare acquired versus aspiration. 6. Chronic diastolic heart failure with ejection fraction 60%. 7. Coronary artery disease with severe 2-vessel disease involving the right coronary artery. 8. Hypertension. 9. Hyperlipidemia. 10. COPD, endstage. 11. Anemia. 12. Endstage renal disease, on hemodialysis. FINAL DISCHARGE MEDICATIONS 1. Prednisone 40 mg p.o. daily x5 days. 2. DuoNeb aerosol solution q.6 hours scheduled. 3. Amiodarone 200 mg p.o. daily. 4. Tylenol 650 mg p.o. q.6 p.r.n. 5. Aspirin 81 mg daily. 6. Ultram 50 mg p.o. t.i.d. p.r.n. 7. Zemplar 1 mcg IV Sunday, Sunday, Sunday. 8. Augmentin 500/125 mg p.o. Sunday, Sunday, Sunday x6 additional doses. 9. Renvela 1,600 mg p.o. t.i.d. with meals. 10. Omeprazole 40 mg p.o. daily. 11. Lipitor 80 mg p.o. q.h.s. 12. Lopressor 25 mg p.o. b.i.d. 13. Cardizem 120 mg p.o. b.i.d. 14. Procrit Sunday, Sunday, Sunday. 15. Flexeril 10 mg p.o. daily p.r.n. 16. Imdur 60 mg p.o. daily. 17. Sublingual nitroglycerin as directed. 18. Nephrocaps 1 capsule p.o. daily. 19. Vitamin C/ascorbic acid 500 mg p.o. daily. DISCHARGE CONDITION Stable. DISCHARGE DISPOSITION Home. FOLLOW UP Follow up with PCP in 7-10 days. Unit #: [id number] #: [id number] Patient: WENDY GARCIA NOTE: Time spent 55 minutes. Dictated by... Jose Alfredo Chapman/danyel TD: 09/07/2016 08:25 JOB #: [id number] DISCHARGE SUMMARY Page 1 of 1 X Luis Reyes MD X DISCHARGE SUMMARY
--- NOTE | ~2016-09-01 | CR72 ---
[facility] A Service of [facility] RADIOLOGY TEXT RESULTS PATIENT: WENDY GARCIA LOCATION: [place] [address] : [birth year] UNIT #: [id number] AGE: [address]: Luis Reyes MD SEX: M ORDER DR: [id number] [facility] [address] [facility]. [place], [place] [address] [id number] I MR#: [id number] Acc #: [id number] NAME: WENDY GARCIA : 1945 SEX: M STUDY DATE/TIME: 09/01/2016 2:24 [facility] STUDY DESCRIPTION: CR Chest Single View Portable Attending Physician: Luis Reyes M.D. Ordering Physician: Gary Lozano D.O. Primary Care Physician: No Primary Care Physician MEDICAL IMAGING REPORT This report is preliminary unless electronic signature is present EXAM Portable chest. INDICATION Shortness of air today. PROCEDURE Frontal view chest. COMPARISON 08/21/2016 FINDINGS Stable cardiomegaly. Increased right pleural effusion moderate in size with a small left effusion that is similar. Increasing ill-defined opacities in the [id number]-nj-[id number] lung zones. IMPRESSION 1. New right pleural effusion is moderate in size and there is a stable small left effusion. 2. Increasing ill-defined opacities in the [id number] lung zones suspected to represent edema. Dictated by... Seun Corbett M.D. THIS IS AN ELECTRONICALLY VERIFIED REPORT Seun Corbett M.D. at 09/04/2016 7:20 AM EED/anandaw TD: 09/01/2016 09:28 [facility] A Service of [facility] RADIOLOGY TEXT RESULTS PATIENT: WENDY GARCIA LOCATION: [facility] [address] : [birth year] UNIT #: [id number] AGE: [address]: Luis Reyes MD SEX: M ORDER DR: YESICA #: [id number] MEDICAL IMAGING REPORT Page 1 of 1 COPY
--- NOTE | ~2016-09-01 | XA203 ---
[facility] A Service of [facility] RADIOLOGY TEXT RESULTS PATIENT: WENDY GARCIA LOCATION: [place] [address] : [birth year] UNIT #: [id number] AGE: [address]: Luis Reyes MD SEX: M ORDER DR: [id number] [address] [place], [place] [address] [id number] I MR#: [id number] Acc #: [id number] NAME: WENDY GARCIA : 1945 SEX: M STUDY DATE/TIME: 09/01/2016 14:39 UNIT: [facility] ROOM: [facility] STUDY DESCRIPTION: XA Thoracentesis Attending Physician: Luis Reyes M.D. Ordering Physician: Александр Brannon M.D. Primary Care Physician: No Primary Care Physician MEDICAL IMAGING REPORT This report is preliminary unless electronic signature is present PROCEDURE Ultrasound guided right thoracentesis. INDICATIONS Right pleural effusion. Pleural effusion is recurrent. The risks, benefits and alternatives of the procedure were discussed with the patient and an informed consent was obtained. In the procedure room, a time-out was performed confirming correct patient and procedure. All elements of maximum sterile-barrier technique utilized according to guidelines appropriate for the procedure. TECHNIQUE/FINDINGS Ultrasound of right posterior hemithorax was performed demonstrating a moderate-sized pleural effusion. The overlying skin was prepped and draped in the usual sterile fashion. 1% lidocaine was utilized to anesthetize the skin and underlying subcutaneous tissues. Next under ultrasound guidance, 5-Latvian Yueh catheter inserted into the pleural space on the right, 650 mL of fluid was removed and a sample was sent to the lab. The needle was removed and a sterile dressing was applied. No immediate complications. IMPRESSION Technically successful ultrasound-guided right thoracentesis. Dictated by... Humberto Salcedo M.D. THIS IS AN ELECTRONICALLY VERIFIED REPORT Humberto Salcedo M.D. at 09/02/2016 5:15 PM ARS/jt [facility] A Service of [facility] RADIOLOGY TEXT RESULTS PATIENT: WENDY GARCIA LOCATION: [facility] [id number] : [birth year] UNIT #: [id number] AGE: [address]: Luis Reyes MD SEX: M ORDER DR: TD: 09/01/2016 22:09 JOB #: [id number] MEDICAL IMAGING REPORT Page 1 of 1 COPY
--- NOTE | ~2016-09-01 | EKG ---
PATIENT: WENDY GARCIA UNIT #: [id number] Ventricular Rate: 92 BPM Atrial Rate: 92 BPM P-R Interval: 190 ms QRS Duration: 102 ms Q-T Interval: 400 ms QTC Calculation(Bezet): 494 ms P Costa: 63 degrees Calculated R Costa: 22 degrees Calculated T Costa: 55 degrees Diagnosis Line: Unusual P axis, possible ectopic atrial rhythm Diagnosis Line: Prolonged QT Diagnosis Line: Abnormal ECG Diagnosis Line: When compared with ECG of 01-SEP-2016 01:40, Diagnosis Line: (unconfirmed) Diagnosis Line: No significant change was found Diagnosis Line: Confirmed by MOJGAN CLAROS MD ([id number]) on Diagnosis Line: 09/02/2016 2:11:03 PM INTERPRETING : ARTHUR
--- NOTE | ~2016-09-01 | CR63 ---
[facility] A Service of [facility] RADIOLOGY TEXT RESULTS PATIENT: WENDY GARCIA LOCATION: [facility] 576- : [birth year] UNIT #: [id number] AGE: [address]: Luis Reyes MD SEX: M ORDER DR: [id number] [facility] [address]. [place], [place] [address] [id number] I MR#: [id number] Acc #: [id number] NAME: WENDY GARCIA : 1945 SEX: M STUDY DATE/TIME: 09/05/2016 10:05 UNIT: [facility] ROOM: [facility] STUDY DESCRIPTION: CR Chest 2 View Attending Physician: Luis Reyes M.D. Ordering Physician: Александр Brannon M.D. Primary Care Physician: No Primary Care Physician MEDICAL IMAGING REPORT This report is preliminary unless electronic signature is present EXAM Chest, 2 views, 09/05/16, 1005 hours. CLINICAL HISTORY Shortness of air, cough, pneumonia since 08/30/16 for followup. COMPARISON 09/02/16 FINDINGS Upright PA and lateral views of the chest demonstrates stable mild cardiomegaly and tortuous aorta. There is mild pulmonary venous distension with persistent small bilateral pleural effusions which are felt stable to slightly improved since 09/02/16. Minimal hazy density at the bases persists. IMPRESSION Stable cardiomegaly with stable to slightly decreased bilateral pleural effusions. There is mild hazy bibasilar density favored to represent atelectasis and small effusions. No definite pneumonia seen. Dictated by... Silvana Gould M.D. THIS IS AN ELECTRONICALLY VERIFIED REPORT Silvana Gould M.D. at 09/06/2016 9:31 AM BERNA/tan TD: 09/05/2016 17:57 JOB #: [id number] MEDICAL IMAGING REPORT [facility] A Service of [facility] RADIOLOGY TEXT RESULTS PATIENT: WENDY GARCIA LOCATION: [address] : [birth year] UNIT #: [id number] AGE: [address]: Luis Reyes MD SEX: M ORDER DR: Page 1 of 1 COPY
[~2016-09-01 01:22] MED LIST changes: +AMIODARONE PO; +AUGMENTIN PO; +DUONEB; +LIPITOR80 MG PO; +PROCRIT10000 UNIT INJ; +RENAGEL800 MG PO; +TRAMADOL HCL50 M2 PO; +ZEMPLAR1 MCG IV
[2016-09-01 02:34] LABS: ARTERIAL BLOOD GAS HCO3 25.6 mmol/L; ARTERIAL BLOOD GAS PCO2 39.6 mmHg (35.0-45.0); ARTERIAL BLOOD GAS PO2 59.3 mmHg (80.0-100); ARTERIAL BLOOD GAS pH 7.419 (7.350-7.450)
[2016-09-01 02:35] LABS: ARTERIAL BLD GAS O2 SATURATION 88.5 % (90.0-100.0); ARTERIAL BLOOD GAS ALLEN TEST NORMAL; ARTERIAL BLOOD GAS ART SITE RIGHT RADIAL; ARTERIAL BLOOD GAS CARBOXY HB 1.6 %sat (0.0-9.0); ARTERIAL BLOOD GAS DELIVERY NASAL CANNULA; ARTERIAL BLOOD GAS MET HB 0.8 %sat (0.0-2.0); ARTERIAL DRAW? YES
[2016-09-01 02:36] LABS: POC - CKMB 1.8 ng/mL (0.0-7.9); POC - TROPONIN <0.05 ng/mL (<=0.05)
[2016-09-01 02:41] LABS: BASOPHIL# 0.1 X10e3 (0-0.3); BASOPHIL% 0.6 % (0-2.5); DIFF IND YES; EOSINOPHIL# 0.1 X10e3 (0-0.7); EOSINOPHIL% 1.1 % (0.0-7.0); HEMATOCRIT 24.8 % (38.0-50.0); HEMOGLOBIN 7.9 gm/dL (13.0-16.0); LYMPHOCYTE# 0.4 X10e3 (1.0-3.5); LYMPHOCYTE% 3.5 % (17.0-45.0); MEAN CELL VOLUME 89.9 FL (83-96); MEAN CORPUSCULAR HEMOGLOBIN 28.7 PG (28-34); MEAN CORPUSCULAR HGB CONC 31.9 g/dL (30-36); MEAN PLATELET VOLUME 7.3 FL (6.5-11.5); MONOCYTE# 1.1 X10e3 (0-1.0); MONOCYTE% 8.6 % (3.0-12.0); NEUTROPHIL% 86.2 % (40-75); PLATELET COUNT 548 X10e3 (140-420); RED BLOOD COUNT 2.76 X10e (3.90-5.60); RED CELL DISTRIBUTION WIDTH 16.4 % (11.0-15.5); WHITE BLOOD COUNT 12.7 X10e3 (4.0-10.5)
[2016-09-01 03:01] LABS: ALBUMIN SERUM 2.6 g/dL (3.5-5.0); BILIRUBIN, DIRECT 0.1 mg/dL (0.0-0.2); BILIRUBIN,INDIRECT 0.6 mg/dL (0.0-0.9); BILIRUBIN,TOTAL 0.7 mg/dL (0.2-2.0); BUN/CREATININE RATIO 7.77; CALCIUM SERUM 8.3 mg/dL (8.4-10.2); CREATININE SERUM 7.2 mg/dL (0.6-1.4); POTASSIUM 3.7 mmol/L (3.5-5.1); PROTEIN TOTAL SERUM 6.6 g/dL (6.0-8.3)
[2016-09-01 03:02] LABS: INR 1.1; PARTIAL THROMBOPLASTIN TIME 31.2 SECONDS (23.5-31.3); PROTHROMBIN TIME (PATIENT) 11.9 SECONDS (9.6-11.5)
[2016-09-01 03:07] LABS: PLATELET ESTIMATE INCREASED (NORMAL)
[2016-09-01 03:08] LABS: ANISOCYTOSIS MOD; HYPOCHROMIA SL; OVALOCYTES PRESENT; STOMATOCYTE PRESENT
[2016-09-01 03:09] LABS: MICROCYTOSIS SL
[2016-09-01 04:59] LABS: POC - CKMB 1.8 ng/mL (0.0-7.9); POC - TROPONIN <0.05 ng/mL (<=0.05)
[2016-09-01 15:12] LABS: BF TOTAL NUCLEATED CELL COUNT 114 CMM (0-100); BODY FLUID APPEARANCE BLOODY; BODY FLUID RBC 20437 CMM; BODY FLUID SOURCE PLEURAL
[2016-09-01 15:28] LABS: PROTEIN, BODY FLUID 3.6 gm/dL
[2016-09-01 17:59] LABS: IRON SERUM 8 ug/dL (45-182); TOTAL IRON BINDING CAPACITY 206 ug/dL (252-460); TRANSFERRIN 147 mg/dL (180-329); TRANSFERRIN SATURATION 4 % (20-50)
[2016-09-02 06:11] LABS: BASOPHIL# 0.1 X10e3 (0-0.3); BASOPHIL% 0.3 % (0-2.5); HEMATOCRIT 23.3 % (38.0-50.0); HEMOGLOBIN 7.3 gm/dL (13.0-16.0); LYMPHOCYTE# 0.4 X10e3 (1.0-3.5); LYMPHOCYTE% 1.6 % (17.0-45.0); MEAN CELL VOLUME 89.7 FL (83-96); MEAN CORPUSCULAR HEMOGLOBIN 28.3 PG (28-34); MEAN CORPUSCULAR HGB CONC 31.5 g/dL (30-36); MEAN PLATELET VOLUME 7.6 FL (6.5-11.5); MONOCYTE# 0.6 X10e3 (0-1.0); MONOCYTE% 2.7 % (3.0-12.0); NEUTROPHIL% 95.4 % (40-75); PLATELET COUNT 512 X10e3 (140-420); RED CELL DISTRIBUTION WIDTH 16.1 % (11.0-15.5)
[2016-09-02 06:15] LABS: BUN/CREATININE RATIO 6.86; CALCIUM SERUM 8.7 mg/dL (8.4-10.2); CREATININE SERUM 5.1 mg/dL (0.6-1.4); DIFF IND YES; GLOM FILT RATE Estimated 10.6 mL/min (>60); POTASSIUM 4.6 mmol/L (3.5-5.1)
[2016-09-02 08:16] LABS: PLATELET ESTIMATE INCREASED (NORMAL)
[2016-09-02 08:17] LABS: ANISOCYTOSIS SL
[2016-09-02 08:18] LABS: HYPOCHROMIA SL
[2016-09-03 05:52] LABS: BASOPHIL% 0.1 % (0-2.5); HEMATOCRIT 23.6 % (38.0-50.0); HEMOGLOBIN 7.5 gm/dL (13.0-16.0); LYMPHOCYTE# 0.4 X10e3 (1.0-3.5); LYMPHOCYTE% 2.1 % (17.0-45.0); MEAN CELL VOLUME 89.9 FL (83-96); MEAN CORPUSCULAR HEMOGLOBIN 28.6 PG (28-34); MEAN CORPUSCULAR HGB CONC 31.8 g/dL (30-36); MEAN PLATELET VOLUME 7.7 FL (6.5-11.5); MONOCYTE# 0.8 X10e3 (0-1.0); MONOCYTE% 4.1 % (3.0-12.0); NEUTROPHIL# 19.2 X10e3 (1.5-7.1); NEUTROPHIL% 93.7 % (40-75); PLATELET COUNT 524 X10e3 (140-420); RED BLOOD COUNT 2.62 X10e (3.90-5.60); RED CELL DISTRIBUTION WIDTH 16.5 % (11.0-15.5); WHITE BLOOD COUNT 20.5 X10e3 (4.0-10.5)
[2016-09-03 05:53] LABS: DIFF IND NO
[2016-09-03 06:07] LABS: BUN/CREATININE RATIO 8.97; CALCIUM SERUM 8.8 mg/dL (8.4-10.2); CREATININE SERUM 6.8 mg/dL (0.6-1.4); GLOM FILT RATE Estimated 7.5 mL/min (>60)
[2016-09-04 14:16] LABS: HEMATOCRIT 23.8 % (38.0-50.0); HEMOGLOBIN 7.5 gm/dL (13.0-16.0); MEAN CELL VOLUME 90.5 FL (83-96); MEAN CORPUSCULAR HEMOGLOBIN 28.5 PG (28-34); MEAN CORPUSCULAR HGB CONC 31.5 g/dL (30-36); MEAN PLATELET VOLUME 7.7 FL (6.5-11.5); RED BLOOD COUNT 2.63 X10e (3.90-5.60); RED CELL DISTRIBUTION WIDTH 16.2 % (11.0-15.5); WHITE BLOOD COUNT 16.5 X10e3 (4.0-10.5)
[2016-09-04 14:19] LABS: BUN/CREATININE RATIO 9.25; CALCIUM SERUM 8.5 mg/dL (8.4-10.2); CREATININE SERUM 2.7 mg/dL (0.6-1.4); GLOM FILT RATE Estimated 22.8 mL/min (>60); POTASSIUM 3.5 mmol/L (3.5-5.1)
[2016-09-05 06:06] LABS: HEMATOCRIT 24.4 % (38.0-50.0); HEMOGLOBIN 7.8 gm/dL (13.0-16.0); MEAN CELL VOLUME 89.8 FL (83-96); MEAN CORPUSCULAR HEMOGLOBIN 28.6 PG (28-34); MEAN CORPUSCULAR HGB CONC 31.9 g/dL (30-36); MEAN PLATELET VOLUME 7.5 FL (6.5-11.5); RED BLOOD COUNT 2.72 X10e (3.90-5.60); RED CELL DISTRIBUTION WIDTH 16.1 % (11.0-15.5); WHITE BLOOD COUNT 13.6 X10e3 (4.0-10.5)
[2016-09-05 06:28] LABS: BUN/CREATININE RATIO 8.64; CALCIUM SERUM 8.5 mg/dL (8.4-10.2); CREATININE SERUM 3.7 mg/dL (0.6-1.4); GLOM FILT RATE Estimated 15.6 mL/min (>60); POTASSIUM 4.2 mmol/L (3.5-5.1)
[2016-09-06 05:56] LABS: BUN/CREATININE RATIO 9.66; CALCIUM SERUM 8.2 mg/dL (8.4-10.2); GLOM FILT RATE Estimated 8.7 mL/min (>60); HEMATOCRIT 23.2 % (38.0-50.0); HEMOGLOBIN 7.5 gm/dL (13.0-16.0); MEAN CELL VOLUME 89.4 FL (83-96); MEAN CORPUSCULAR HEMOGLOBIN 28.9 PG (28-34); MEAN CORPUSCULAR HGB CONC 32.3 g/dL (30-36); MEAN PLATELET VOLUME 7.6 FL (6.5-11.5); POTASSIUM 4.3 mmol/L (3.5-5.1); RED BLOOD COUNT 2.6 X10e (3.90-5.60); RED CELL DISTRIBUTION WIDTH 16.1 % (11.0-15.5); WHITE BLOOD COUNT 15.1 X10e3 (4.0-10.5)
[2016-09-06 09:55] LABS: IMMUNOGLOBULIN A 307 mg/dL (81-463); IMMUNOGLOBULIN G 852 mg/dL (694-1618); IMMUNOGLOBULIN M 70 mg/dL (48-271)
[2016-09-06] MEDS ORDERED: DELTASONE20 MG PO (18:01)
[2016-09-06] MEDS ORDERED: AUGMENTIN PO (18:02)
[2016-09-06] MEDS ORDERED: DILTIAZEM HCL120 MG PO (18:04)
[2016-09-06] MEDS ORDERED: BREO ELLIPTA 11 EACH INH (18:06)
[2016-09-06] MEDS ORDERED: PROAIR HFA8.5 GM INH (18:07)
[2016-09-06] MEDS ORDERED: NEPHRO-VITE RX1 EACH PO (18:13)
== END 2016-09-06 19:25 | disposition home or self-care (01) | DRG 177 ==
LOC: CED 01:22 → CEDOF 03:25 → C5C 03:25 → CED 03:38 → CEDOF 03:38 → CICCU3 15:17 → C5C 09-02 16:14
PROVIDERS: Emergency Medicine; Family Medicine; Internal Medicine; Internal Medicine Nephrology
PROC: 5A1D60Z (ICD-10-PCS; principal; 2016-09-01)
PROC: 05H333Z Insertion of Infusion Device into Right Innominate Vein, Percutaneous Approach (ICD-10-PCS; 2016-09-02)
PROC: B54MZZA Ultrasonography of Right Upper Extremity Veins, Guidance (ICD-10-PCS; 2016-09-02)
DX: J69.0 Pneumonitis due to inhalation of food and vomit (principal); N18.6 End stage renal disease; J96.21 Acute and chronic respiratory failure with hypoxia; J90 Pleural effusion, not elsewhere classified; I11.0 Hypertensive heart disease with heart failure; I50.32 Chronic diastolic (congestive) heart failure; I27.2 Other secondary pulmonary hypertension; J44.0 Chronic obstructive pulmonary disease with (acute) lower respiratory infection; J44.1 Chronic obstructive pulmonary disease with (acute) exacerbation; I48.0 Paroxysmal atrial fibrillation; Z87.891 Personal history of nicotine dependence; J18.9 Pneumonia, unspecified organism; Z99.2 Dependence on renal dialysis; Z91.15 Patient's noncompliance with renal dialysis; E11.9 Type 2 diabetes mellitus without complications; D64.9 Anemia, unspecified; I25.10 Atherosclerotic heart disease of native coronary artery without angina pectoris; E78.5 Hyperlipidemia, unspecified; K21.9 Gastro-esophageal reflux disease without esophagitis; M62.3 Immobility syndrome (paraplegic)
CPT/HCPCS: 36415; 36600; 71010; 71020; 80048; 80076; 82274; 82308; 82553; 82728; 82784; 82803; 82945; 83540; 83550; 83605; 83615; 83735; 83880; 83986; 84157; 84484; 85025; 85027; 85379; 85384; 85610; 85730; 86850; 86900; 86901; 86923; 87040; 87070; 87205; 87340; 89051; 92526; 92610; 93005; 94640; 94660; 94760; 94761; 96374; 97116; 97162; 97165; 97530; 99285; G8978-GP; G8979-GP; G8987-GO; G8988-GO; G8989-GO; G8996-GN; G8997-GN; G8998-GN; J0456; J0696; J0885; J2501; J2543; J2920; J2930; J3260; J3370; P9016; Q4081